=== PATIENT | male | born 1950 | race Caucasian/White ===

== ENCOUNTER 2023-05-17 02:52 | Day surgery (SDC) | payer OTHER, SELFPAY ==
[2023-05-09 12:24] VITALS: BMI 38.5
[2023-05-17 07:22] VITALS: BP 167/97; PULSE 95; RESP 20; TEMP 36.4; O2SAT 96; BMI 36.0
[2023-05-17] MEDS: LACTATED RINGERS 1,000 ML 150 ML IV CONT (07:38)
--- NOTE | 2023-05-17 07:57 | PM.HPGS ---
History of Present Illness History of Present Illness Consent: Risks, benefits, and alternatives have been discussed and questions answered. Patient agrees to proceed with procedure. Chief complaint: neoplasm screening Narrative: Yung Macias is a 73 year old male Presents for screening colonoscopy. Patient has current weight appetite bowel movements are normal. Patient denies abdominal pain. He has had no bleeding. Family history noncontributory. Most recent colonoscopy [address] Carlton was unremarkable. Patient does have prior history of colon polyps by Dr. Gary in 2012 and again in 2008. Review of Systems Review of Systems: Review of systems noncontributory. [facility] Past Medical History Medical History Afib HTN (hypertension) Sinusitis Vitamin D deficiency disease Family History Family History Sibling Patient's sister is in good health Patient's brother is in good health Acute myocardial infarction, Onset Age: 58 Patient's brother is Mother Family history of Alzheimer's disease Patient's mother is Acute myocardial infarction, Onset Age: 90 Father Patient's father is Family history of malignant neoplasm Other Family history of cardiovascular disease Social History Social History Smoking packs per day: 1 Smoking cigarettes per day: 20.0 Years smoked: 30 Smoking pack-years: 30.00 Smoking status: Former smoker Tobacco type: cigarettes Second hand tobacco smoke exposure: No Smoking end date: 08/22/87 Alcohol intake: current Drinks per week: 15 Alcohol use details: BEERS Substance use: never Substance use type: does not use Current Housing: Decline to Answer Concerned About Future Housing: Decline to Answer Difficulty Paying Gas/Electric Bills: Decline to Answer Difficulty Paying for Meds: Decline to Answer Currently Unemployed: Decline to Answer Education: Decline to Answer Difficulty w/ Childcare or Family Care: Decline to Answer Living arrangements: with family Spiritual care concerns: No Meds Home Medications and Allergies Home Medications Medication Instructions Recorded Confirmed Type apixaban 5 mg tablet (Eliquis) 5 mg PO BID 09/09/19 05/09/23 History olanzapine 10 mg tablet (Zyprexa) 10 mg PO HS 09/09/19 05/09/23 History triamcinolone acetonide 0.1 % 1 applic topical PRN PRN Rash 03/16/23 05/09/23 History topical cream sildenafil 50 mg tablet 50 mg PO DAILY PRN sexual activity 04/13/23 05/09/23 Rx #20 tabs clonazepam 0.5 mg tablet (Klonopin) 0.5 mg PO .hs #30 tabs 04/18/23 05/09/23 Rx memantine 10 mg tablet (Namenda) 10 mg PO BID #180 tabs 04/27/23 05/09/23 Rx Osteo Bi-Flex 1 cap PO DAILY 05/09/23 05/09/23 History atorvastatin 10 mg tablet 10 mg PO DAILY 05/09/23 05/09/23 History omega 5-taf-gmn-fish oil 1,200 mg 1 cap PO BID 05/09/23 05/09/23 History (144 mg-216 mg) capsule (Fish Oil) Allergies Allergy/AdvReac Type Severity Reaction Status Date / Time No Known Allergies Allergy Verified 05/17/23 07:18 Vital Signs Vital Signs - 24 hr 05/17/23 07:22 Temperature 97.6 F Pulse Rate 95 Respiratory Rate 20 Blood Pressure 167/97 H Pulse Oximetry 96 Oxygen Delivery Room Air Exam Narrative: Physical exam reveals patient to be alert. Vital signs stable. HEENT exam is unremarkable. Patient is anicteric. Lungs are clear to auscultation and percussion. Heart is without murmur or extra sounds. Abdomen bowel sounds are present soft nontender with no organomegaly. Digital external rectal exam normal.
--- NOTE | 2023-05-17 08:22 | WPDANESEPPF ---
Anes - Initial Pre Proc Eval Procedure: Operation Date: 05/17/23 08:30 Proposed Procedures p Screening Colonoscopy - Sameer Rubio MD Date/Time: 05/17/23 08:22 Surgeon: Sameer Rubio MD Pre Op Diagnosis: neoplasm screening Patient Data Age: 73 Gender: M Height: 1.88 m Weight: 127.3 kg Last Vital Signs Temp 97.6 F 05/17/23 07:22 Pulse 95 05/17/23 07:22 Resp 20 05/17/23 07:22 BP 167/97 H 05/17/23 07:22 Pulse Ox 96 05/17/23 07:22 O2 Del Method Room Air 05/17/23 07:22 Allergies Allergy/AdvReac Type Severity Reaction Status Date / Time No Known Allergies Allergy Verified 05/17/23 07:18 Home Medications Medication Instructions Recorded Confirmed Type apixaban 5 mg tablet (Eliquis) 5 mg PO BID 09/09/19 05/09/23 History olanzapine 10 mg tablet (Zyprexa) 10 mg PO HS 09/09/19 05/09/23 History triamcinolone acetonide 0.1 % 1 applic topical PRN PRN Rash 03/16/23 05/09/23 History topical cream sildenafil 50 mg tablet 50 mg PO DAILY PRN sexual activity 04/13/23 05/09/23 Rx #20 tabs clonazepam 0.5 mg tablet (Klonopin) 0.5 mg PO .hs #30 tabs 04/18/23 05/09/23 Rx memantine 10 mg tablet (Namenda) 10 mg PO BID #180 tabs 04/27/23 05/09/23 Rx Osteo Bi-Flex 1 cap PO DAILY 05/09/23 05/09/23 History atorvastatin 10 mg tablet 10 mg PO DAILY 05/09/23 05/09/23 History omega 1-mzc-gft-fish oil 1,200 mg 1 cap PO BID 05/09/23 05/09/23 History (144 mg-216 mg) capsule (Fish Oil) Patient hx anesthesia problems: none Family hx anesthesia problems: none Results Review: All pre-operative results and documents have been reviewed as part of the pre-operative evaluation. [facility] Past Medical History Medical History Afib HTN (hypertension) Sinusitis Vitamin D deficiency disease Family History Family History Sibling Patient's sister is in good health Patient's brother is in good health Acute myocardial infarction, Onset Age: 58 Patient's brother is Mother Family history of Alzheimer's disease Patient's mother is Acute myocardial infarction, Onset Age: 90 Father Patient's father is Family history of malignant neoplasm Other Family history of cardiovascular disease Social History Social History Smoking packs per day: 1 Smoking cigarettes per day: 20.0 Years smoked: 30 Smoking pack-years: 30.00 Smoking status: Former smoker Tobacco type: cigarettes Second hand tobacco smoke exposure: No Smoking end date: 08/22/87 Alcohol intake: current Drinks per week: 15 Alcohol use details: BEERS Substance use: never Substance use type: does not use Current Housing: Decline to Answer Concerned About Future Housing: Decline to Answer Difficulty Paying Gas/Electric Bills: Decline to Answer Difficulty Paying for Meds: Decline to Answer Currently Unemployed: Decline to Answer Education: Decline to Answer Difficulty w/ Childcare or Family Care: Decline to Answer Living arrangements: with family Spiritual care concerns: No Anes - Eval Final PreProcedure Day of Procedure 05/17/23 08:22 Patient weight: obese Heart: regular rate and rhythm Lungs: clear to auscultation Airway: Mallampati scale class III Neurological: alert and oriented Last oral intake: >/= 8 hours ASA classification: III Emergent: no Anesthetic plan: proceed Anesthesia type and monitoring: general GIVS and standard monitoring Results Review: All pre-operative results and documents have been reviewed as part of the pre-operative evaluation. Informed Consent: The patient's anesthetic plan and its attendant risks and benefits were discussed with the patient/family/POA. Questions were solicited and answers provided to the satisfaction of the patient/family/POA.
[2023-05-17 09:16] VITALS: BP 136/91; PULSE 99; RESP 26; O2SAT 89
[2023-05-17 09:26] VITALS: BP 141/92; PULSE 99; RESP 26; O2SAT 98
[2023-05-17 09:36] VITALS: BP 141/92; PULSE 98; RESP 22; O2SAT 98
== END 2023-05-17 09:52 | disposition home or self-care (01) ==
PROVIDERS: PCP Emergency Medicine; Visit Provider Internal Medicine Gastroenterology
PROC: 0DJD8ZZ Inspection of Lower Intestinal Tract, Via Natural or Artificial Opening Endoscopic (ICD-10-PCS; CPT 45378; principal; 2023-05-17 08:30)
DX: Z12.11 Encounter for screening for malignant neoplasm of colon (principal); K63.5 Polyp of colon; K64.8 Other hemorrhoids; I48.91 Unspecified atrial fibrillation; I10 Essential (primary) hypertension; E55.9 Vitamin D deficiency, unspecified; Z79.01 Long term (current) use of anticoagulants; Z87.891 Personal history of nicotine dependence; E66.9 Obesity, unspecified; Z68.36 Body mass index [BMI] 36.0-36.9, adult
CPT/HCPCS: 45385; 88305; J2001; J2704; J7120

== ENCOUNTER 2025-08-13 19:07 | Observation (INO) | payer OTHER, SELFPAY ==
--- NOTE | ~2025-08-13 | XR_ITS ---
XR toe 1st RT min 2V 08/13/2025 19:50 Indication: Toe infection Procedure: 2 views right first toe Comparison: No prior studies for comparison. Findings: No acute fracture or traumatic malalignment. There is mild polyarticular osteoarthritis. No evidence for erosion to suggest osteomyelitis. Moderate soft tissue swelling overlying the distal phalanx. Impression: 1: No evidence for osteomyelitis. No acute fracture. Reviewed, dictated and finalized at location O. PROJECT ENGINEER Impression: 1: No evidence for osteomyelitis. No acute fracture.
--- NOTE | ~2025-08-13 | CT_ITS ---
EXAMINATION: CT diagnostic chest w con DATE: 08/16/2025 14:07 INDICATION: tracheal deviation noted on chest x-ray TECHNIQUE: Computed tomography (CT) of the chest was performed with 100 mL Omnipaque-350 intravenous contrast. Additional 3D reconstructions utilizing coronal maximum intensity projection (MIP) were performed. Automated exposure control and iterative reconstruction technique were employed. The dose-length product was 917.83 mGy-cm. COMPARISON: 10/10/2008 FINDINGS: Minimal emphysema the apices. 2 mm calcified right middle lobe nodule consistent with old granulomatous disease. There are a few additional scattered bilateral 1-2 mm noncalcified pulmonary nodules. No pneumonia, pulmonary edema, pleural effusion or pneumothorax. Heart size is normal. Atherosclerotic coronary artery calcifications. No pericardial effusion. Thoracic aorta is normal in caliber with no dissection. No pathologically enlarged thoracic lymphadenopathy. The previously noted tracheal deviation is not appreciated on current study with no appreciable impinging masses or vasculature and appearance on prior radiographs may be related to phase of respiration. Small sliding-type hiatal hernia. Again seen are multiple hepatic cysts which have increased in size the largest now measuring 4.5 cm. A couple low-attenuation left renal cysts the largest a 2.1 cm exophytic cyst at the lower pole. Mild fatty atrophy of the pancreas with 2.2 cm cystic lesion at the body the pancreas. Mild to moderate thoracic spondylosis with chronic mild anterior wedging at T7 and T8 as well as bridging osteophytes at multiple levels consistent with diffuse idiopathic skeletal hyperostosis (DISH). IMPRESSION: 1. Tracheal deviation seen on prior chest radiograph is not appreciated in the current study with no evident impinging masses or vasculature. Appearance on prior chest radiograph may be related to suboptimal inspiratory effort. 2. Indeterminate 2.1 cm cystic lesion at the body the pancreas. Could consider further evaluation with either endoscopic ultrasound or 6 month follow-up pre and postcontrast MRI. 3. Small sliding-type hiatal hernia. 4. Minimal emphysema with a few scattered 1-2 mm noncalcified pulmonary nodules. Could consider optional follow-up low-dose noncontrast chest CT in 12 months. Reviewed, dictated and finalized at location A. APHONE TECHNICIAN IMPRESSION: 1. Tracheal deviation seen on prior chest radiograph is not appreciated in the current study with no evident impinging masses or vasculature. Appearance on pr ior chest radiograph may be related to suboptimal inspiratory effort. 2. Indeterminate 2.1 cm cystic lesion at the body the pancreas. Could consider further evaluation with either endoscopic ultrasound or 6 month follow-up pre a nd postcontrast MRI. 3. Small sliding-type hiatal hernia. 4. Minimal emphysema with a few scattered 1-2 mm noncalcified pulmonary nodules . Could consider optional follow-up low-dose noncontrast chest CT in 12 months.
--- NOTE | ~2025-08-13 | XR_ITS ---
Examination: XR chest 1V portable Clinical History: cough Comparison: None Technique: Portable AP Findings: Heart size enlarged. Rightward tracheal deviation. Lungs clear. No acute bony abnormality. IMPRESSION: 1. Recommend CT chest to ensure tracheal deviation merely due to normal structures. 2. Pericardial effusion and/or cardiomegaly. Reviewed, dictated and finalized at location R. RINTENDENT COLLIERY IMPRESSION: 1. Recommend CT chest to ensure tracheal deviation merely due to normal struct ures. 2. Pericardial effusion and/or cardiomegaly.
--- OUTSIDE RECORDS SUMMARY | 2025-08-13 19:08 | XMS_ITS | Clinical Summary ---
Author Organization [facility] Address [address] [place] [id number] Care Team Providers Care Cable Weaver Name Role Phone Unavailable Primary Care Provider Unavailabl e Social History Tobacco Use Types Packs/Day Years Used Date Smoking Tobacco: Never Assessed Sex and Gender Information Value Date Recorded Sex Assigned at Not on file Legal Sex Male 11:17 PM CDT Gender Identity Not on file Sexual Orientation Not on file Plan of Treatment Health Maintenance Due Date Last Done Comments Hepatitis C 1966 DTaP, Tdap and Td Vaccines ( 1 - Tdap) 1967 Pneumococcal Vaccine: 50+ Years (1 of 1 - PCV) 1998 Zoster Vaccines (1 of 2) 1998 Annual Medicare Wellness Visit 2013 RSV Immunization or 60+ Years (1 - 1-dose 75+ series) 2023 COVID-19 Vaccine (3 - 2024-2 6 season) 2025 11/07/2020, 10/17/2020 Influenza Adult (#1) 2025 Hepatitis A Vaccines Aged Out No long er eligible based on patient's age to complete this topic Meningococcal B Vaccine Aged Out No l onger eligible based on patient's age to complete this topic Meningococcal Vaccine Aged Out No promise jemal eligible based on patient's age to complete this topic RSV Immunizations Under 20 Months Aged Out No longer eligible b ased on patient's age to complete this topic Insurance [employer]
--- OUTSIDE RECORDS SUMMARY | 2025-08-13 19:08 | XMS_ITS | Clinical Summary ---
Author Organization [facility] [address] Address [address] [place] [address] Care Team Providers Care Court Of Appeals Judge Name Role Phone Dylan Morejon MD Primary Care Provide r Allergies No known active allergies Medications zyjhr-9-phx-epa -dpa-fish oil 1,050-1,200 mg capsule 1 capsule Active tcourzdq-kvgi-o nf6-A-olzm-bosw 750 mg-644 mg- 30 mg-1 mg tablet Take by mouth. Active clonazePAM (KlonoPIN) 0.5 mg tablet Take 0.5 tablets (0.25 mg total) by mouth nightly Active OLANZapine (ZyPREXA) 10 mg tablet Take 1 tablet (10 mg total) by mouth nightly Active atorvastatin (LIPITOR) 10 mg tablet Take 1 tablet (10 mg total) by mouth daily Active cholecalciferol (VITAMIN D-3) 2000 unit capsule Take 1 capsule (2,000 Units total) by mouth daily Active memantine (NAMENDA) 10 mg tabletIndicatio ns:Moderate to Severe Alzheimer's Type Dementia Take 1 tablet (10 mg total) by mouth 2 (two) times a day Active Eliquis 5 mg tablet TAKE 1 TABLET BY MOUTH TWICE A DAY 180 tablet 3 03/06/2025 Active Active Problems Problem Noted Date Diagnosed Date Chronic atrial fibrillation 07/06/2017 Surgical History Surgery Date Site/Laterality Comments HERNIA REPAIR COLONOSCOPY W/ BIOPSIES 11/20/2017 - 12/19/2017 Medical History Medical History Date Comments Atrial fibrillation (HCC) Family History Relation Name Status Comments Father (Age 92) Mother (Age 91) Social History Tobacco Use Types Packs/Day Years Used Date Smoking Tobacco: Former Smokeless Tobacco: Never Tobacco Cessation:Counseling Given: Not Answered Alcohol Use Standard Drinks/Week Comments Yes 0 (1 standard drink = 0.6 oz pur e alcohol) Sex and Gender Information Value Date Recorded Sex Assigned at Not on file 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 Gender Identity Not on file Sexual Orientation Not on file Last Filed Vital Signs Vital Sign Reading Time Taken Comments Blood Pressure 120/74 02/18/2025 11:43 AM CDT Pulse 99 02/18/2025 11:43 AM CDT Temperature - - Respiratory Rate - - Oxygen Saturation 92% 02/18/2025 11: 43 AM CDT Inhaled Oxygen Concentration - - Weight 137.1 kg (302 lb 3.2 oz) 025 11:43 AM CDT Height 188 cm (6' 2) 02/18/2025 11:43 AM CDT Body Mass Index 38.8 02/18/2025 11:43 AM CDT Plan of Treatment Health Maintenance Due Date Last Done Comments Depression Screening 1950 Fall Risk Assessment 1950 Hepatitis C Screening 1950 DTaP/Tdap/Td Vaccine (1 - Tdap) 1959 Hepatitis B Screening 1966 Pneumococcal vaccine 65+ (1 of 2 - PCV) 1967 Zoster Vaccine (1 of 2) 1998 Abdominal Aortic Aneurysm (AAA) Screen 2013 Well Visit 65+ 2013 Influenza Vaccine (#1) 2025 [place] [address] [facility] [place] [id number] [facility] Care Teams Court Of Appeals Judge Relationship Specialty Start Date End Date Dylan Morejon MD [id number] [place] [id number] PCP - General Emergency Medicine 06/10/17
--- OUTSIDE RECORDS SUMMARY | 2025-08-13 19:08 | XMS_ITS | Patient Health Record ---
Author Organization [facility] [address] Address [address] [facility] [address] [place] [address] Support Name Relationship Address Phone SHAHID LOUIS Guarantor Unknown [phone] Reason For Referral No Information Medications Medication SIG (Take, Route, Fr equency, Duration) Notes Start Date End Date Status ZyPREXA 5 MG Tablet Oral Active ZyPREXA 15 mg Tablet Oral Active PROzac 20 MG Capsule Oral Active ZyPREXA 10 mg Tablet Oral Active Plan Of Treatment No Information
[2025-08-13 19:26] VITALS: BP 159/91; PULSE 98; RESP 16; TEMP 36.9; O2SAT 98
--- NOTE | 2025-08-13 19:53 | ECG_ITS ---
Test Date: 2025-08-13 22:27:45 Measurements Intervals [place] Rate: 92 P: 0 MT: 0 QRS: 13 QRSD: 110 T: 1 QT: 387 QTc: 480 Interpretive Statements ATRIAL FIBRILLATION BORDERLINE ST-T WAVE ABNORMALITY- ANTERIOR LEADS ABNORMAL ECG No previous ECG available for comparison Electronically Signed On 08-14-2025 06:55:46 MANAGER HI by Jason Ivy D.O.
[2025-08-13 22:32] VITALS: BP 146/93; PULSE 92; RESP 18; TEMP 37; O2SAT 98
[2025-08-13 22:38] LABS: Hematocrit 38.9 % (42.0-52.0); Hemoglobin 12.8 g/dL (14.0-18.0); Immature Granulocyte Percent A 0.2 % (0-0.5); Lymphocytes Absolute Auto 1.40 K/mm3 (0.9-3.2); Mean Corpuscular HGB Conc 32.9 g/dl (32-36); Mean Corpuscular Hemoglobin 30.4 pg (26-34); Mean Corpuscular Volume 92.4 fl (80-100); Nucleated Red Blood Cells Absolute Auto 0.000 K/mm3 (0.0-0.012); Nucleated Red Blood Cells Perc 0.0 % (0.0-0.2); Platelet Count Result 144 k/mm3 (150-375); Red Blood Count 4.21 M/mm3 (4.6-6.20); White Blood Count 4.9 K/mm3 (4.5-10.0)
[2025-08-13 23:01] LABS: INR 1.4; Prothrombin Time 16.7 Seconds (11.1-14.7)
[2025-08-13 23:02] LABS: Partial Thromboplastin Time 35.2 Seconds (22.3-36.8)
[2025-08-13 23:11] LABS: Alanine Aminotransferase 20 U/L (6-50); Albumin Level 4.1 g/dL (3.5-5.1); Alkaline Phosphatase 122 U/L (38-126); Anion Gap 6 mmol/L (4-12); Aspartate Amino Transferase 25 U/L (17-59); Bilirubin,Total 0.5 mg/dL (0.2-1.3); Blood Urea Nitrogen 15 mg/dL (9-20); CRP < 0.5 mg/dL (<1.0); Calcium 8.8 mg/dL (8.4-10.2); Carbon Dioxide 28 mmol/L (22-30); Chloride 108 mmol/L (98-107); Estimated CRCL calculation 88 ml/min; Estimated Glomerular Filt Rate > 60; Glucose 110 mg/dL (65-110); Lipase 73 U/L (23-300); Potassium 4.1 mmol/L (3.4-5.0); Sodium 142 mmol/L (137-145); Total Protein 7.3 g/dL (6.3-8.2)
[2025-08-13 23:22] LABS: Troponin I 0.188 ng/mL (0.000-0.034)
[2025-08-14] VITALS (54 sets, daily range): BP systolic 154–178; BP diastolic 94–117; PULSE 78–108; RESP 14–26; TEMP 36.2–36.8; O2SAT 92–98; BMI 37.7; BMI 38.2
--- NOTE | 2025-08-14 | ECHO_ITS ---
Patient Info Name: Yung Macias Age: 75 years : 1950 Gender: Male Ht: 74 in Wt: 293 lbs BSA: 2.68 m2 HR: 96 bpm BP: 172 / 101 mmHg Technical Quality: Fair Exam Date: 08/14/2025 11:15 AM Patient Status: I Admit Date: 08/14/2025 Exam Type: CA echo dop color flow w con Complete two-dimensional, color flow and Doppler transthoracic echocardiogram is performed with contrast to opacify the left ventricle and to improve the deliniation of the left ventricle endocardial borders. Staff Referring Physician: Rell Kay MD Byproducts Extractor: Elton Okeefe III Attending Provider: Elba Cedeño DO Contrast/Agitated Saline Contrast/Ag. Saline: Definity Amount: 2.00 ml Administered By: Elton Okeefe III Existing IV Access: Yes IV Access Condition: patent with no signs of infiltration Summary 1. Echo contrast was used. Mild LV enlargement, severe concentric LV remodelling. LV systolic function is at lower limits of normal, LVEF 50-55%. Indeterminate diastolic function. Normal RV size and systolic function. Moderate to severe left atrial enlargement, mild right atrial enlargement. Normal mitral valve structure, mild MR. Normal aortic valve structure, no stenosis, mild aortic regurgitation. Unable to assess RVSP due to inadequate TR jet. Left Ventricle Left ventricular chamber dimension is mildly enlarged. There is severely increased left ventricular wall thickness. Right Ventricle Right ventricular chamber dimension is normal. Right ventricular systolic function is normal. Left Atria Left atrial chamber dimension is severely enlarged. Right Atria Right atrial chamber dimension is mildly enlarged. Aortic Valve The aortic valve is normal. There is no aortic valve stenosis. There is mild aortic valve regurgitation. Pulmonic Valve The pulmonic valve is not well visualized. There is mild pulmonic regurgitation. Mitral Valve The mitral valve has normal leaflets. There is mild mitral valve regurgitation. Tricuspid Valve The tricuspid valve leaflets are normal. There is mild tricuspid valve regurgitation. Pericardium/Pleural The pericardium appears normal. Inferior Vena Cava Normal inferior vena cava with >50% collapse upon inspiration consistent with normal right atrial pressure, 5 mmHg. Left Ventricular Outflow Tract Name Value Normal LVOT 2D LVOT Diameter 2.5 cm LVOT Doppler LVOT Peak Velocity 108 cm/s LVOT Peak Gradient 5 mmHg LVOT Mean Gradient 2 mmHg LVOT VTI 20 cm LVOT VTI/AV VTI Ratio 1.0 LVOT Stroke Volume 99 ml LVOT CO 10.1 l/min LVOT CI 3.8 l/min/m2 Pulmonic Valve Name Value Normal PV Doppler PV Peak Velocity 116 cm/s PV Peak Gradient 5 mmHg PV Mean Gradient 3 mmHg PV Regurgitation Doppler WA Peak End Diastolic Velocity 142 cm/s Mitral Valve Name Value Normal MV Doppler MV Peak Gradient 5 mmHg MV Mean Gradient 3 mmHg MV Area (Cont Eq VTI) 5.4 cm2 MV Regurgitation Doppler MR Peak Gradient 106 mmHg MV Diastolic Function MV E Peak Velocity 94 cm/s MV Decel Time (PW) 168 ms MV Annular TDI MV E/e' (Septal) 10.9 MV E/e' (Lateral) 6.3 MV E/e' (Average) 8.6 Tricuspid Valve Name Value Normal Estimated PAP/RSVP RA Pressure 5 mmHg <=5 TV Annular TDI TV Lateral Dena s' Velocity 11.2 cm/s >=9.5 Aortic Valve Name Value Normal AV Doppler AV Peak Velocity 121 cm/s AV Peak Gradient 5 mmHg AV Mean Gradient 3 mmHg AV VTI 21 cm AV Area (Cont Eq VTI) 4.7 cm2 >=3.0 AV Area (Cont Eq Zohaib) 4.4 cm2 AV DI (Zohaib) 0.89 AV Regurgitation 2D LVOT Area 4.9 cm2 Ventricles Name Value Normal LV Dimensions 2D/MM IVS Diastolic Thickness (2D) 1.0 cm 0.6-1.0 LVID Diastole (2D) 6.1 cm 4.2-5.8 LVIW Diastolic Thickness (2D) 0.9 cm 0.6-1.0 LVID Systole (2D) 4.7 cm 2.5-4.0 LVOT Diameter 2.5 cm LV Mass (2D Cubed) 233.41 g 88.00-224.00 LV Mass Index (2D Cubed) 87 g/m2 49-115 Relative Wall Thickness (2D) 0.29 <=0.42 LV Fractional Shortening/Ejection Fraction 2D/MM LV Fractional Shortening (2D) 22 % 25-43 LV EF (2D Teichholz) 45 % LV Diastolic Volume (4C MOD) 196 ml LV EF (4C MOD) 51 % LV Diastolic Volume (2C MOD) 109 ml LV EF (2C MOD) 47 % LV Diastolic Volume (BP MOD) 158 ml 62-150 LV Diastolic Volume Index (BP MOD) 59 ml/m2 34-74 LV Systolic Volume (BP MOD) 76 ml 21-61 LV Systolic Volume Index (BP MOD) 28 ml/m2 11-31 LV EF (BP MOD) 52 % 52-72 LV Diastolic Length (4C) 9.1 cm LV Systolic Length (4C) 7.7 cm LV Stroke Volume (4C MOD) 101 ml Atria Name Value Normal LA Dimensions LA Volume (4C A-L) 142 ml LA Volume (BP A-L) 136 ml RA Dimensions RA Systolic [place] Length (4C) 7.7 cm 2.1-2.7 RA Area (4C) 36.5 cm2 <=18.0 Report Signatures
--- NOTE | 2025-08-14 01:18 | ECG_ITS ---
Test Date: 2025-08-14 02:04:11 Measurements Intervals [place] Rate: 103 P: 0 [place]: 0 QRS: 32 QRSD: 110 T: 6 QT: 385 QTc: 505 Interpretive Statements ATRIAL FIBRILLATION WITH RAPID VENTRICULAR RESPONSE INTRAVENTRICULAR CONDUCTION DELAY BORDERLINE ST-T WAVE ABNORMALITY- INFERIOR LEADS BASELINE ARTIFACT- I, III, AVR, AVL, AVF ABNORMAL ECG Compared to ECG 08/13/2025 22:27:45 HEART RATE HAS INCREASED Electronically Signed On 08-14-2025 07:07:34 COMPOSITE BOAT BUILDER by Jason Ivy D.O.
[2025-08-14 01:59] LABS: Troponin I 0.179 ng/mL (0.000-0.034)
--- NOTE | 2025-08-14 02:42 | ED.GENADULT ---
HPI - General Adult General Chief complaint: Wound/Laceration Stated complaint: infected toe Time Seen by Provider: 08/14/25 01:31 History of Present Illness HPI narrative: patient is a 75-year-old gentleman who presents emergency department with chief complaint of right great toe infection patient reports he was seen at the urgent care and then daily a and started on Keflex the patient states that he has taken 2 doses of the Keflex at and noticed that it was red he also reports he has had upper respiratory symptoms and has been coughing the patient states that he has had discomfort in his chest whenever he coughs Related Data Home Medications ?Medication ?Instructions ?Recorded ?Confirmed ?Last Taken ?Type apixaban 5 mg tablet (Eliquis) 5 mg PO BID 09/09/19 08/13/25 05/14/23 History olanzapine 10 mg tablet (Zyprexa) 10 mg PO HS 09/09/19 08/13/25 05/16/23 History omega 5-gon-xmb-fish oil 1,200 mg 1 cap PO BID 05/09/23 08/13/25 05/16/23 History (144 mg-216 mg) capsule (Fish Oil) diphenhydramine HCl 50 mg capsule 50 mg PO .am 08/13/25 08/13/25 Unknown History polyethylene glycol 3350 17 gram 17 g PO DAILY 08/13/25 08/13/25 Unknown History oral powder packet (Miralax) Allergies Allergy/AdvReac Type Severity Reaction Status Date / Time No Known Allergies Allergy Verified 08/13/25 19:30 Review of Systems Review of Systems: A 10 system review of systems was completed on the patient and is negative except for what is stated in the HPI. Nursing and ancillary documentation was reviewed. [facility] Past Medical History Medical History BRBPR (bright red blood per rectum) Constipation Perianal rash Hemorrhoids Rectal bleeding Insect bite Atherosclerosis of coronary artery REM behavioral disorder Yeast infection of the skin Ventral hernia without obstruction or gangrene Unspecified contact dermatitis, unspecified cause Umbilical hernia without obstruction and without gangrene Skin lesion of cheek Patient had no falls in past year Obsessive-compulsive disorder Mixed obsessional thoughts and acts Cellulitis of left lower extremity Bradycardia Acute non-recurrent frontal sinusitis Vitamin D deficiency disease HTN (hypertension) Afib Sinusitis Family History Family History Sibling Patient's sister is in good health Patient's brother is in good health Acute myocardial infarction, Onset Age: 58 Patient's brother is Mother Family history of Alzheimer's disease Patient's mother is Acute myocardial infarction, Onset Age: 90 Father Patient's father is Family history of malignant neoplasm Other Family history of cardiovascular disease Social History Social History Smoking packs per day: 1 Smoking cigarettes per day: 20.0 Years smoked: 30 Smoking pack-years: 30.00 Smoking status: Former smoker Tobacco type: cigarettes Second hand tobacco smoke exposure: No Smoking end date: 08/22/87 Alcohol intake: current Drinks per week: 15 Alcohol use details: BEERS Substance use: never Substance use type: does not use Lack of Transportation: No Lack of Food: Never True Current Housing: I Have Housing Concerned About Future Housing: No Difficulty Paying Gas/Electric Bills: No Difficulty Paying for Meds: No Currently Unemployed: No Education: High School Diploma/GED Difficulty w/ Childcare or Family Care: No Living arrangements: with family Spiritual care concerns: No Exam Narrative: GENERAL: Well-appearing, well-nourished, and in no acute distress. HEAD: Normocephalic, atraumatic. EYES: PERRLA and EOMI. ENT: Nares clear, no rhinorrhea or epistaxis. Mucous membranes moist. NECK: Supple. CHEST: Clear to auscultation. No respiratory distress. HEART: Regular rate and rhythm. No murmur heard. Normal peripheral pulses. ABDOMEN: Soft, nontender, nondistended, normal active bowel sounds. EXTREMITIES: Normal range of motion. No edema. SKIN: Warm, dry, no rash. a except for right great toe over there is redness present on the medial aspect of the great toe the edge of the nail NEURO: No focal deficits. Alert and oriented x3. PSYCH: Normal mood and affect. Course Vital Signs Vital signs: Vital Signs Temperature 36.9 C 08/13/25 19:26 Pulse Rate 98 08/13/25 19:26 Respiratory Rate 16 08/13/25 19:26 Blood Pressure 159/91 H 08/13/25 19:26 Pulse Oximetry 98 08/13/25 19:26 Oxygen Delivery Room Air 08/13/25 19:26 Temperature 37.0 C 08/13/25 22:32 Pulse Rate 95 08/14/25 02:45 Respiratory Rate 14 08/14/25 02:45 Blood Pressure 163/106 H 08/14/25 02:31 Pulse Oximetry 95 08/14/25 01:16 Oxygen Delivery Room Air 08/13/25 19:26 MDM Differential Diagnosis Differential Diagnosis: differential diagnosis includes osteomyelitis, cellulitis, pneumonia, ACS, EKG showed no acute ischemic changes initial troponin was elevated at 0.188 repeat troponin did not significantly increase chest x-ray was obtained white blood cell count was not significantly elevated x-ray of the foot showed no evidence of osteomyelitis CRP was normal Lab Data 08/13/25 22:29 08/13/25 22:29 Labs: Lab Results 08/13/25 08/14/25 08/14/25 Range/Units 22:29 01:30 02:06 WBC 4.9 (4.5-10.0) K/mm3 RBC 4.21 L (4.6-6.20) M/mm3 Hgb 12.8 L (14.0-18.0) g/dL Hct 38.9 L (42.0-52.0) % MCV 92.4 (80-100) fl MCH 30.4 (26-34) pg MCHC 32.9 (32-36) g/dl RDW 12.8 (11.5-14.5) % Plt Count 144 L (150-375) k/mm3 MPV 10.4 (7.4-10.4) fl Immature Gran % (Auto) 0.2 (0-0.5) % Neut % (Auto) 58.3 (45.5-73.1) % Lymph % (Auto) 28.9 (18.3-44.2) % [place] % (Auto) 9.3 H (2.6-8.5) % Eos % (Auto) 3.1 (0-4.4) % Baso % (Auto) 0.2 (0.2-1.2) % Lymph # (Auto) 1.40 (0.9-3.2) K/mm3 [place] # (Auto) 0.5 (0.1-0.6) K/mm3 Eos # (Auto) 0.2 (0-0.3) K/mm3 Baso # (Auto) 0.0 (0.0-0.1) K/mm3 Abs Immat Gran (auto) 0.01 (0.00-0.031) K/mm3 Absolute Neuts (auto) 2.8 (1.3-6.7) K/mm3 Absolute Nucleated RBC 0.000 (0.0-0.012) K/mm3 Nucleated RBC % 0.0 (0.0-0.2) % PT 16.7 H (11.1-14.7) Seconds INR 1.4 APTT 35.2 (22.3-36.8) Seconds Sodium 142 (137-145) mmol/L Potassium 4.1 (3.4-5.0) mmol/L Chloride 108 H (98-107) mmol/L Carbon Dioxide 28 (22-30) mmol/L Anion Gap 6 (4-12) mmol/L BUN 15 (9-20) mg/dL Creatinine 0.91 (0.7-1.3) mg/dL Estim Creat Clear Calc 88 ml/min Estimated GFR > 60 (59 - ) Glucose 110 (65-110) mg/dL Lactic Acid 0.8 (0.7-2.0) mmol/L Calcium 8.8 (8.4-10.2) mg/dL Total Bilirubin 0.5 (0.2-1.3) mg/dL AST 25 (17-59) U/L ALT 20 (6-50) U/L Alkaline Phosphatase 122 (38-126) U/L Troponin I 0.188 H* 0.179 H* (0.000-0.034) ng/mL C-Reactive Protein < 0.5 (<1.0) mg/dL Total Protein 7.3 (6.3-8.2) g/dL Albumin 4.1 (3.5-5.1) g/dL Lipase 73 (23-300) U/L Urine Color Yellow (Yellow) Urine Appearance Cloudy H (Clear) Urine pH 7.0 (5.0-9.0) Ur Specific [place] 1.022 (1.001-1.035) Urine Protein Negative (Negative) mg/dL Urine Glucose (UA) Negative (Negative) mg/dL Urine Ketones Trace H (Negative) mg/dL Ur Blood (Man) Negative (Negative) Urine Nitrate Negative (Negative) Urine Bilirubin Negative (Negative) Urine Urobilinogen 1.0 (<2.0) mg/dL Leukocyte Esterase Rfl Negative (Negative) STEFANIE/UL Urine RBC 3-5 H (0-2) /hpf Urine WBC 0-5 (0-3) /hpf Ur Squamous Epith Cells None seen (Few) /hpf Urine Bacteria None seen /hpf Urine Casts 0-2 Imaging Data Radiologist's impression: ITS Impressions Toe X-Ray 08/13/25 19:55 Impression: 1: No evidence for osteomyelitis. No acute fracture. Discharge Plan Discharge Clinical Impression: Elevated troponin, Cellulitis of foot, right Patient Disposition: Still a Patient Condition: Stable Patient Language: Estonian Prescriptions: No Action sildenafil 50 mg tablet 50 mg PO DAILY PRN (Reason: sexual activity) Qty: 14 1RF Rx Instructions: administer 30 minutes to 4 hours before activity memantine 10 mg tablet See Rx Instructions .ROUTE .COMPLEX Qty: 180 2RF Dose Instruction: TAKE 1 TABLET BY MOUTH TWICE A DAY Rx Instructions: TAKE 1 TABLET BY MOUTH TWICE A DAY furosemide [Lasix] 20 mg tablet 20 mg PO .COMPLEX Qty: 7 0RF Rx Instructions: 20 mg orally every other day; olanzapine [Zyprexa] 10 mg tablet 10 mg PO HS Eliquis 5 mg tablet 5 mg PO BID clonazepam [Klonopin] 0.5 mg tablet 0.5 mg PO .hs Qty: 30 5RF Rx Instructions: Take 1 tablet by mouth at bedtime. hydrocortisone acetate [Anusol-HC] 25 mg suppository 25 mg RECTAL DAILY PRN (Reason: hemorrhoids) Qty: 12 0RF omega 3-nud-dnx-fish oil [Fish Oil] 1,200 (144-216) mg Capsule 1 cap PO BID diphenhydramine HCl 50 mg capsule 50 mg PO .am polyethylene glycol 3350 [Miralax] 17 gram powder in packet 17 g PO DAILY cholecalciferol (vitamin D3) 50 mcg (2,000 unit) capsule See Rx Instructions .ROUTE .COMPLEX Qty: 90 2RF Dose Instruction: TAKE 1 CAPSULE BY MOUTH EVERY DAY Rx Instructions: TAKE 1 CAPSULE BY MOUTH EVERY DAY atorvastatin 10 mg tablet See Rx Instructions .ROUTE .COMPLEX Qty: 90 2RF Dose Instruction: TAKE 1 TABLET BY MOUTH EVERY DAY Rx Instructions: TAKE 1 TABLET BY MOUTH EVERY DAY Follow-up/Referrals: Dylan Morejon MD [Primary Care Provider, Internal Medicine]
[2025-08-14 03:12] LABS: Add Urine Microscopic? YES; Appearance Urine Cloudy (Clear); Glucose Urine UA Negative (Negative); Leukocyte Esterase Ur Negative LEU/UL (Negative); Nitrate Urine Negative (Negative); Non Pathogenic Casts 0-2; Specific Grav Ur 1.022 (1.001-1.035)
[2025-08-14] MEDS: ceFAZolin 1 GM in SODIUM CHLORIDE 0.9% IV 50 ML 100 ML IVPB ×3 (05:23→20:47)
[2025-08-14 05:37] LABS: Troponin I 0.149 ng/mL (0.000-0.034)
[2025-08-14 05:50] LABS: Influenza A QL RT-PCR Negative (Negative); Influenza B QL RT-PCR Negative (Negative); RSV RNA, RT-PCR Negative (Negative); SARS-CoV-2 RNA PCR Negative (Negative)
--- NOTE | 2025-08-14 07:15 | PC.NURSE ---
Took report on patient at 0730
--- NOTE | 2025-08-14 07:46 | P.HP_ITS ---
H&P: HPI History of Present Illness Date/Time: 08/14/25 07:46 Chief Complaint: Wound/Laceration Narrative: Yung Macias is a 75 year old male with a past medical history of HTN, afib on Eliquis who presents to the hospital due to a toe wound. He originally went to an urgent care approximately 1 week ago for a toe wound after trimming his toenails too short which cause a break in the skin in subsequent swelling/pain. He was originally discharged on 3 different medications including Keflex and took this for approximately 4-5 days but is now presenting to the emergency room with continued complaints of right great toe discomfort. He also complains of a slight nonproductive cough around the time that he went to the urgent care, but this has subsided at this point. While in the ER, he was found to be in atrial fibrillation with elevated blood pressure. Troponins were drawn and were elevated although not up trending. At the time he denies any chest pain, shortness of breath, nausea/vomiting, abdominal pain, headache/dizziness or numbness/tingling. He has a wound to the right great toe, however no extensive redness, draining, streaking or tenderness to palpation to the joint of the great toe. Denies any fevers, chills. He also does have bilateral 2+ pitting edema to the lower extremities, however he states that this is chronic and has been going on for an undetermined amount of time. Initial VS at presentation: 36.9? C, 98 HR, 16 RR, 159/91, 98% on room air WBC 4.9, HGB 12.8, HCT 38.9, PLT 144, PT 16.7, INR 1.4, sodium 142, potassium 4.1, BUN 15, creatinine 0.91, GFR 60, glucose 110, lactic acid 0.8, LFTs WNL Troponin: 0.188 -> 0.179 UA: Not indicative of infection Toe x-ray: No evidence of osteomyelitis or acute fracture EKG: , QTC 505, rate 103. Atrial fibrillation with rapid ventricular response, intraventricular conduction delay Review of Systems Review of Systems: All systems reviewed & are unremarkable except as noted in HPI and below PMFSH Past Medical History Medical History BRBPR (bright red blood per rectum) Constipation Perianal rash Hemorrhoids Rectal bleeding Insect bite Atherosclerosis of coronary artery REM behavioral disorder Yeast infection of the skin Ventral hernia without obstruction or gangrene Unspecified contact dermatitis, unspecified cause Umbilical hernia without obstruction and without gangrene Skin lesion of cheek Patient had no falls in past year Obsessive-compulsive disorder Mixed obsessional thoughts and acts Cellulitis of left lower extremity Bradycardia Acute non-recurrent frontal sinusitis Vitamin D deficiency disease HTN (hypertension) Afib Sinusitis Family History Family History Sibling Patient's sister is in good health Patient's brother is in good health Acute myocardial infarction, Onset Age: 58 Patient's brother is Mother Family history of Alzheimer's disease Patient's mother is Acute myocardial infarction, Onset Age: 90 Father Patient's father is Family history of malignant neoplasm Other Family history of cardiovascular disease Social History Social History Smoking packs per day: 1 Smoking cigarettes per day: 20.0 Years smoked: 30 Smoking pack-years: 30.00 Smoking status: Former smoker Second hand tobacco smoke exposure: No Alcohol intake: current Alcohol use details: BEERS Substance use: never Substance use type: does not use Lack of Transportation: No Lack of Food: Never True Current Housing: I Have Housing Concerned About Future Housing: No Difficulty Paying Gas/Electric Bills: No Difficulty Paying for Meds: No Currently Unemployed: No Education: High School Diploma/GED Difficulty w/ Childcare or Family Care: No Living arrangements: with family Spiritual care concerns: No Meds Home Medications and Allergies Home Medications ?Medication ?Instructions ?Recorded ?Confirmed ?Type apixaban 5 mg tablet (Eliquis) 5 mg PO BID 09/09/19 History olanzapine 10 mg tablet (Zyprexa) 10 mg PO HS 09/09/19 08/14/25 History omega 7-zqp-ilv-fish oil 1,200 mg 1 cap PO BID 3 08/14/25 History (144 mg-216 mg) capsule (Fish Oil) cholecalciferol (vitamin D3) 50 See Rx Instructions .R oute 02/22/24 08/14/25 Rx mcg (2,000 unit) capsule .COMPLEX #90 caps sildenafil 50 mg tablet 50 mg PO DAILY PRN sexual ac tivity 12/05/24 08/14/25 Rx #14 tabs atorvastatin 10 mg tablet See Rx Instructions .Route 0 02/26/25 08/14/25 Rx .COMPLEX #90 tabs clonazepam 0.5 mg tablet (Klonopin) 0.5 mg PO .hs #30 tabs 03/04/25 08/14/25 Rx furosemide 20 mg tablet (Lasix) 20 mg PO .COMPLEX #7 t abs 06/05/25 08/14/25 Rx memantine 10 mg tablet See Rx Instructions .Route 1 08/14/25 Rx .COMPLEX #180 tabs diphenhydramine HCl 50 mg capsule 50 mg PO .am 5 08/14/25 History polyethylene glycol 3350 17 gram 17 g PO DAILY 5 08/14/25 History oral powder packet (Miralax) Allergies Allergy/AdvReac Type Severity Reaction Status Date / Time cheese AdvReac Intermediate Nausea and Verified 08/14/25 10:27 Vomiting Vital Signs Vital Signs - 24 hr 08/13/25 19:26 08/13/25 22:32 08/14/25 00:24 Temperature 98.4 F 98.6 F Pulse Rate 98 92 102 H Respiratory Rate 16 18 16 Blood Pressure 159/91 H 146/93 H Pulse Oximetry 98 98 96 Oxygen Delivery Room Air 08/14/25 00:30 08/14/25 00:31 08/14/25 00:45 Temperature Pulse Rate 100 97 92 Respiratory Rate 16 14 17 Blood Pressure 154/100 H Pulse Oximetry 95 94 94 Oxygen Delivery 08/14/25 00:46 08/14/25 01:00 08/14/25 01:01 Temperature Pulse Rate 90 92 94 Respiratory Rate 16 17 18 Blood Pressure 168/95 H 154/100 H Pulse Oximetry 96 94 93 Oxygen Delivery 08/14/25 01:15 08/14/25 01:16 08/14/25 01:30 Temperature Pulse Rate 86 98 85 Respiratory Rate 16 18 22 H Blood Pressure 175/102 H Pulse Oximetry 96 95 Oxygen Delivery 08/14/25 01:31 08/14/25 01:45 08/14/25 01:46 Temperature Pulse Rate 95 99 104 H Respiratory Rate 23 H 26 H 22 H Blood Pressure 177/112 H 167/103 H Pulse Oximetry Oxygen Delivery 08/14/25 02:00 08/14/25 02:01 08/14/25 02:24 Temperature Pulse Rate 99 101 H 97 Respiratory Rate 24 H 22 H 18 Blood Pressure 178/117 H Pulse Oximetry Oxygen Delivery 08/14/25 02:30 08/14/25 02:31 08/14/25 02:45 Temperature Pulse Rate 99 87 95 Respiratory Rate 20 18 14 Blood Pressure 163/106 H Pulse Oximetry Oxygen Delivery Exam Narrative: Gen - well appearing male in no acute respiratory distress who is nontoxic- appearing lying semi recumbent in bed HEENT - normocephalic. ?Atraumatic. ?Pupils equal round and reactive. ??Sclera clear and anicteric. ?Moist mucous membranes. ?No facial asymmetry. Neck - neck was supple. ?No dominant adenopathy, thyromegaly or masses. ?2+ carotid upstrokes without bruits. Chest - lungs are clear to auscultation bilaterally. ?No wheezes or crackles. ? CV - heart was regular rate and rhythm. ?S1-S2. ?No murmurs gallops or rubs. Abd - abdomen was soft. ?Nontender. ?Nondistended. ?Positive bowel sounds. ? Ext -2+ pitting edema to bilateral lower extremities, no clubbing, cyanosis. ?2+ DP pulses bilaterally. Neuro - patient is alert and oriented x4. ?Strength is 5/5 in both upper and lower extremities. ?Cranial nerves 2-12 are intact. ?Speech is clear. Psych - normal mood and affect. ?Patient is pleasant and cooperative. Skin - superficial skin wound with dried blood and an overlying blood scab to right great toe. The area appears hemostatic. There is?no tenderness to palpation,?no surrounding erythema, and?no drainage?noted.warm and dry. ?No rashes noted. Results Labs Labs: Short CBC 08/13/25 Range/Units 22:29 WBC 4.9 (4.5-10.0) K/mm3 Hgb 12.8 L (14.0-18.0) g/dL Hct 38.9 L (42.0-52.0) % Plt Count 144 L (150-375) k/mm3 [facility] 08/13/25 22:29 Sodium 142 Potassium 4.1 Chloride 108 H Carbon Dioxide 28 BUN 15 Creatinine 0.91 Glucose 110 Calcium 8.8 Cardiac Enzymes 08/13/25 08/14/25 08/14/25 Range/Units 22:29 01:30 05:02 Troponin I 0.188 H* 0.179 H* 0.149 H* (0.000-0.034) ng/mL Liver Function 08/13/25 Range/Units 22:29 Total Bilirubin 0.5 (0.2-1.3) mg/dL AST 25 (17-59) U/L ALT 20 (6-50) U/L Alkaline Phosphatase 122 (38-126) U/L Albumin 4.1 (3.5-5.1) g/dL Urine 08/14/25 Range/Units 02:06 Urine Color Yellow (Yellow) Urine Appearance Cloudy H (Clear) Urine pH 7.0 (5.0-9.0) Ur Specific [place] 1.022 (1.001-1.035) Urine Protein Negative (Negative) mg/dL Urine Glucose (UA) Negative (Negative) mg/dL Quality VTE Prophylaxis VTE prophylaxis: pharmacologic ordered Assessment and Plan Assessment and plan (1) Afib: Code(s): I48.91 - Unspecified atrial fibrillation Status: Acute Assessment and Plan: * Keep serum potassium >4 and keep magnesium >2 * Consult Cardiology for further management, appreciate assistance and recommendations * Lovenox initiated * Echocardiogram ordered * Continue Eliquis (2) Cellulitis of foot, right: Code(s): L03.115 - Cellulitis of right lower limb Status: Acute Assessment and Plan: * Initially presented to 1 week ago for toe wound after cutting nail too close to skin * Was discharged on Keflex - reported contine to worsen throughout week * Toe XR: no osteomyelitis or acute fracture * Low suspcion for active infection, no drainage, TTP or ascending erythema * Continue cefazolin (3) Lower extremity edema: Code(s): R60.0 - Localized edema Status: Acute Assessment and Plan: * Chronic lower extremity edema for undetermined length of time * 2+ pitting edema up to mid staley on both lower ext * Cardiology following for afib/elevated troponin * Initiating diuresis -Lasix 40 mg IV b.i.d. * Monitor I/Os (4) Elevated troponin: Code(s): R79.89 - Other specified abnormal findings of blood chemistry Status: Acute Assessment and Plan: * Elevated troponin in ED: 0.149 -> 0.179 -> 0.188 * Denies any chest pain, shortness of breath * EKG: Afib w/ rvr * Chest XR: Recommend CT chest to ensure tracheal deviation merely due to normal structures. Pericardial effusion and/or cardiomegaly * Cardiology consulted * Echocardiogram pending (5) HTN (hypertension): Code(s): I10 - Essential (primary) hypertension Status: Acute Assessment and Plan: Patient's blood pressure was reviewed on 08/14 172/101 Cardiology consulted -initiating losartan 25 mg daily
[2025-08-14] MEDS: ASPIRIN 81 MG CHEWABLE TABLET PO (08:46)
--- NOTE | 2025-08-14 09:29 | WPCEDHO ---
ED Hand Off Checklist All vitals saved: Y IV Site documented: Y All med administrations documented: Y Triage Note Triage Note Pt to ed with c/o having a right 08/13/25 19:26 great toe infection. Pt was seen at urgent care in [place] and was told it was cellulitis of the toe and gave him a disk from his imaging. Pt was prescribed keflex 500mg bid started taking them yesterday. Pt was told if the toe got worse not better to be seen at the ER. Allergies No Known Allergies Allergy (Verified 08/13/25 19:30) Family History (Last Reviewed 08/14/25 @ 02:43 by Rell Kay MD) Sibling Patient's sister is in good health Patient's brother is in good health Acute myocardial infarction Patient's brother is Mother Family history of Alzheimer's disease Patient's mother is Acute myocardial infarction Father Patient's father is Family history of malignant neoplasm Other Family history of cardiovascular disease Active Medications including assessments/comments Aspirin (Aspirin 81 Mg Chewable Tablet) 81 mg PO DAILY@0800 [facility] Last Admin: 08/14/25 08:46 Dose: 81 mg Documented By: ANT Administered/Completed Medications Discontinued Medications Cefazolin Sodium 1 gm/ Sodium (Chloride) 50 mls @ 100 mls/hr IVPB ONCE STA Stop: 08/14/25 05:12 Last Infusion: 08/14/25 05:55 Dose: Infused Documented By: Admin: 08/14/25 05:23 Dose: 100 mls/hr Documented By: JONN Notes 08/14/25 07:15 Nurse Note by Jeri Torres Took report on patient at 0710 Initialized on 08/14/25 07:15 - END OF NOTE Interventions/Assessments IV / Saline Lock, Insert Start: 08/14/25 05:18 Freq: Status: Active Protocol: Document 08/14/25 05:19 JONN (Rec: 08/14/25 05:19 JONN [id number]) IV Assessment Peripheral Access Right Antecubital IV Catheter Access Initiated IV Insertion Date 08/14/25 IV Insertion Time 05:19 Catheter Gauge 20 IV Insertion 1 Attempts Ultrasound Used for No Placement IV Site Assessment WNL IV Care and WNL Maintenance Last Vital Signs Temperature 98.6 F 08/13/25 22:32 Pulse Rate 108 H 08/14/25 09:18 Respiratory Rate 21 H 08/14/25 09:18 Pulse Oximetry 94 08/14/25 09:18 Blood Pressure 163/94 H 08/14/25 09:18 Blood Pressure Mean 117 08/14/25 09:18 Oxygen Delivery Room Air 08/13/25 19:26 Weight 136.36 kg 08/13/25 19:26 Last Result - Abnormals Only RBC 4.21 M/mm3 (4.6-6.20) L 08/13/25 22:29 Hgb 12.8 g/dL (14.0-18.0) L 08/13/25 22:29 Hct 38.9 % (42.0-52.0) L 08/13/25 22:29 Plt Count 144 k/mm3 (150-375) L 08/13/25 22:29 Power % (Auto) 9.3 % (2.6-8.5) H 08/13/25 22:29 PT 16.7 Seconds (11.1-14.7) H 08/13/25 22:29 Chloride 108 mmol/L (98-107) H 08/13/25 22:29 Troponin I 0.149 ng/mL (0.000-0.034) H* 08/14/25 05:02 Urine Appearance Cloudy (Clear) H 08/14/25 02:06 Urine Ketones Trace mg/dL (Negative) H 08/14/25 02:06 Urine RBC 3-5 /hpf (0-2) H 08/14/25 02:06 Most Recent Suicide Severity Rating Suicide Severity Rating NO RISK INDICATED 08/13/25 19:26
--- NOTE | 2025-08-14 10:36 | P.CONCA_ITS ---
Assessment and Plan Assessment and plan (1) Afib: Code(s): I48.91 - Unspecified atrial fibrillation Status: Acute Assessment and Plan: * patient with chronic atrial fibrillation * appears rate controlled on no AV lindsey blocking agents * Can add metoprolol if needed * continue with Eliquis 5 mg BID (2) Elevated troponin: Code(s): R79.89 - Other specified abnormal findings of blood chemistry Status: Acute Assessment and Plan: * troponin elevated at 0.188, 0.179, 0.149, these are flat and most likely are secondary to HTN and volume overload * patient denies any chest pain or pressure * EKG shows atrial fibrillation with no acute ST/T wave changes * will do echo to look for any LV dysfunction or WMA * continue atorvastatin 10 mg daily. No aspirin as on Eliquis (3) HTN (hypertension): Code(s): I10 - Essential (primary) hypertension Status: Acute Assessment and Plan: * blood pressure has been elevated * currently on no antihypertensive agents * will begin losartan 25 mg daily and monitor. (4) Lower extremity edema: Code(s): R60.0 - Localized edema Status: Acute Assessment and Plan: * +2-3 pitting bilateral LE edema * reports this is chronic * concern for volume overload/CHF given edema and reports of cough * CXR demonstrates cardiomegaly and CT chest is pending * will check pBNP * will begin lasix 40 mg IV BID and monitor (5) Obesity (BMI 30-39.9): Code(s): E66.9 - Obesity, unspecified Status: Acute Assessment and Plan: * weight loss encouraged (6) Cellulitis of foot, right: Code(s): L03.115 - Cellulitis of right lower limb Status: Acute Assessment and Plan: * antibiotics as per primary team History of Present Illness History of Present Illness Consult date/time: 08/14/25 10:36 Requesting physician: Kunal White PA-C Consult reason: Other (elevated troponin ) Reason For Visit: infected toe Narrative: Yung Macias is a 75 y.o. male with a known history of rate controlled atrial fibrillation on Eliquis at home for AC. He reports a couple weeks ago he was trimming his toenails and tore the nail and skin on the rt great toe. He then noted some swelling and redness so he went to urgent care. While there he also, complained of cough with clear sputum production. He states they gave him 3 medications and he started them. He states the cough seemed to get better, but he was concerned about his toe so he came to the ER. He denies any fever or chills. No nausea or vomiting. In the ER patient found to be in atrial fibrillation and had elevated blood pressure. He had troponin drawn that were elevated and we were consulted. Patient denies any chest pain or pressure. States he has some shortness of breath and chronic bilateral LE edema. Review of Systems 2 Review of Systems: All systems reviewed & are unremarkable except as noted in HPI and below PMFSH Past Medical History Medical History BRBPR (bright red blood per rectum) Constipation Perianal rash Hemorrhoids Rectal bleeding Insect bite Atherosclerosis of coronary artery REM behavioral disorder Yeast infection of the skin Ventral hernia without obstruction or gangrene Unspecified contact dermatitis, unspecified cause Umbilical hernia without obstruction and without gangrene Skin lesion of cheek Patient had no falls in past year Obsessive-compulsive disorder Mixed obsessional thoughts and acts Cellulitis of left lower extremity Bradycardia Acute non-recurrent frontal sinusitis Vitamin D deficiency disease HTN (hypertension) Afib Sinusitis Family History Family History Sibling Patient's sister is in good health Patient's brother is in good health Acute myocardial infarction, Onset Age: 58 Patient's brother is Mother Family history of Alzheimer's disease Patient's mother is Acute myocardial infarction, Onset Age: 90 Father Patient's father is Family history of malignant neoplasm Other Family history of cardiovascular disease Social History Social History Smoking packs per day: 1 Smoking cigarettes per day: 20.0 Years smoked: 30 Smoking pack-years: 30.00 Smoking status: Former smoker Second hand tobacco smoke exposure: No Alcohol intake: current Alcohol use details: BEERS Substance use: never Substance use type: does not use Lack of Transportation: No Lack of Food: Never True Current Housing: I Have Housing Concerned About Future Housing: No Difficulty Paying Gas/Electric Bills: No Difficulty Paying for Meds: No Currently Unemployed: No Education: High School Diploma/GED Difficulty w/ Childcare or Family Care: No Living arrangements: with family Spiritual care concerns: No Meds Home Medications and Allergies Home Medications ?Medication ?Instructions ?Recorded ?Confirmed ?Type apixaban 5 mg tablet (Eliquis) 5 mg PO BID 09/09/19 History olanzapine 10 mg tablet (Zyprexa) 10 mg PO HS 09/09/19 08/14/25 History omega 4-yyo-wbz-fish oil 1,200 mg 1 cap PO BID 3 08/14/25 History (144 mg-216 mg) capsule (Fish Oil) cholecalciferol (vitamin D3) 50 See Rx Instructions .R oute 02/22/24 08/14/25 Rx mcg (2,000 unit) capsule .COMPLEX #90 caps sildenafil 50 mg tablet 50 mg PO DAILY PRN sexual ac tivity 12/05/24 08/14/25 Rx #14 tabs atorvastatin 10 mg tablet See Rx Instructions .Route 0 02/26/25 08/14/25 Rx .COMPLEX #90 tabs clonazepam 0.5 mg tablet (Klonopin) 0.5 mg PO .hs #30 tabs 03/04/25 08/14/25 Rx furosemide 20 mg tablet (Lasix) 20 mg PO .COMPLEX #7 t abs 06/05/25 08/14/25 Rx memantine 10 mg tablet See Rx Instructions .Route 1 08/14/25 Rx .COMPLEX #180 tabs diphenhydramine HCl 50 mg capsule 50 mg PO .am 5 08/14/25 History polyethylene glycol 3350 17 gram 17 g PO DAILY 5 08/14/25 History oral powder packet (Miralax) Allergies Allergy/AdvReac Type Severity Reaction Status Date / Time cheese AdvReac Intermediate Nausea and Verified 08/14/25 10:27 Vomiting Vital Signs Vital Signs - 24 hr 08/13/25 19:26 08/13/25 22:32 08/14/25 00:24 Temperature 36.9 C 37.0 C Pulse Rate 98 92 102 H Respiratory Rate 16 18 16 Blood Pressure 159/91 H 146/93 H Pulse Oximetry 98 98 96 Oxygen Delivery Room Air 08/14/25 00:30 08/14/25 00:31 08/14/25 00:45 Temperature Pulse Rate 100 97 92 Respiratory Rate 16 14 17 Blood Pressure 154/100 H Pulse Oximetry 95 94 94 Oxygen Delivery 08/14/25 00:46 08/14/25 01:00 08/14/25 01:01 Temperature Pulse Rate 90 92 94 Respiratory Rate 16 17 18 Blood Pressure 168/95 H 154/100 H Pulse Oximetry 96 94 93 Oxygen Delivery 08/14/25 01:15 08/14/25 01:16 08/14/25 01:30 Temperature Pulse Rate 86 98 85 Respiratory Rate 16 18 22 H Blood Pressure 175/102 H Pulse Oximetry 96 95 Oxygen Delivery 08/14/25 01:31 08/14/25 01:45 08/14/25 01:46 Temperature Pulse Rate 95 99 104 H Respiratory Rate 23 H 26 H 22 H Blood Pressure 177/112 H 167/103 H Pulse Oximetry Oxygen Delivery 08/14/25 02:00 08/14/25 02:01 08/14/25 02:24 Temperature Pulse Rate 99 101 H 97 Respiratory Rate 24 H 22 H 18 Blood Pressure 178/117 H Pulse Oximetry Oxygen Delivery 08/14/25 02:30 08/14/25 02:31 08/14/25 02:45 Temperature Pulse Rate 99 87 95 Respiratory Rate 20 18 14 Blood Pressure 163/106 H Pulse Oximetry Oxygen Delivery 08/14/25 03:02 08/14/25 03:15 08/14/25 03:16 Temperature Pulse Rate 89 98 99 Respiratory Rate 16 16 16 Blood Pressure 167/110 H Pulse Oximetry Oxygen Delivery 08/14/25 03:33 08/14/25 03:45 08/14/25 03:46 Temperature Pulse Rate 91 91 101 H Respiratory Rate 14 15 15 Blood Pressure 163/95 H Pulse Oximetry Oxygen Delivery 08/14/25 04:00 08/14/25 04:01 08/14/25 04:15 Temperature Pulse Rate 88 93 85 Respiratory Rate 17 14 15 Blood Pressure 161/102 H Pulse Oximetry Oxygen Delivery 08/14/25 04:16 08/14/25 04:39 08/14/25 04:55 Temperature Pulse Rate 94 95 98 Respiratory Rate 16 15 20 Blood Pressure 163/107 H Pulse Oximetry Oxygen Delivery 08/14/25 05:37 08/14/25 05:45 08/14/25 05:46 Temperature Pulse Rate 98 96 98 Respiratory Rate 20 17 17 Blood Pressure 165/96 H Pulse Oximetry Oxygen Delivery 08/14/25 06:00 08/14/25 06:01 08/14/25 06:15 Temperature Pulse Rate 99 93 96 Respiratory Rate 21 H 18 19 Blood Pressure 169/107 H Pulse Oximetry Oxygen Delivery 08/14/25 06:16 08/14/25 06:30 08/14/25 06:31 Temperature Pulse Rate 101 H 92 105 H Respiratory Rate 19 23 H 24 H Blood Pressure 174/98 H 170/109 H Pulse Oximetry Oxygen Delivery 08/14/25 06:45 08/14/25 06:46 08/14/25 08:12 Temperature Pulse Rate 99 96 105 H Respiratory Rate 18 14 18 Blood Pressure 155/108 H Pulse Oximetry 95 Oxygen Delivery 08/14/25 08:15 08/14/25 08:16 08/14/25 08:32 Temperature Pulse Rate 104 H 100 96 Respiratory Rate 16 19 18 Blood Pressure 162/95 H Pulse Oximetry Oxygen Delivery 08/14/25 09:18 08/14/25 10:10 Temperature 36.8 C Pulse Rate 108 H 96 Respiratory Rate 21 H 22 H Blood Pressure 163/94 H 172/101 H Pulse Oximetry 94 97 Oxygen Delivery Exam 2 Const: General: comfortable and no acute distress Neck: Neck: supple and No no JVD Resp: Effort & Inspection: normal respiratory effort Auscultation: clear to auscultation bilaterally and no crackles Cardio: Rate: regular rate Rhythm: abnormal rhythm irregularly irregular Heart sounds: no gallops, no murmurs and no rubs Extrem: General: edema (2+ bilateral LE edema ) bilateral Psych: Affect: normal affect Results Labs and Meds 08/13/25 22:29 08/13/25 22:29 Lab results: Cardiac Enzymes 08/13/25 08/14/25 08/14/25 Range/Units 22:29 01:30 05:02 AST 25 (17-59) U/L Troponin I 0.188 H* 0.179 H* 0.149 H* (0.000-0.034) ng/mL Coagulation 08/13/25 Range/Units 22:29 PT 16.7 H (11.1-14.7) Seconds APTT 35.2 (22.3-36.8) Seconds CBC 08/13/25 Range/Units 22:29 WBC 4.9 (4.5-10.0) K/mm3 RBC 4.21 L (4.6-6.20) M/mm3 Hgb 12.8 L (14.0-18.0) g/dL Hct 38.9 L (42.0-52.0) % Plt Count 144 L (150-375) k/mm3 Lymph # (Auto) 1.40 (0.9-3.2) K/mm3 Whiteside # (Auto) 0.5 (0.1-0.6) K/mm3 Eos # (Auto) 0.2 (0-0.3) K/mm3 Baso # (Auto) 0.0 (0.0-0.1) K/mm3 Comprehensive Metabolic Panel 08/13/25 Range/Units 22:29 Sodium 142 (137-145) mmol/L Potassium 4.1 (3.4-5.0) mmol/L Chloride 108 H (98-107) mmol/L Carbon Dioxide 28 (22-30) mmol/L BUN 15 (9-20) mg/dL Creatinine 0.91 (0.7-1.3) mg/dL Glucose 110 (65-110) mg/dL Calcium 8.8 (8.4-10.2) mg/dL AST 25 (17-59) U/L ALT 20 (6-50) U/L Alkaline Phosphatase 122 (38-126) U/L Total Protein 7.3 (6.3-8.2) g/dL Albumin 4.1 (3.5-5.1) g/dL Intake and Output 08/13/25 08/14/25 08/14/25 23:59 07:59 15:59 Intake Total 50 Balance 50 Intake: IV 50 ceFAZolin 1 gm In Sodium 50 Chloride 0.9% IV 50 ml @ 100 mls/hr IVPB ONCE STA Rx#: [id number] Patient Weight 08/14/25 23:59 Weight 135.1 kg EKG Interpretation EKG: no acute changes EKG shows: atrial fibrillation
--- NOTE | 2025-08-14 11:26 | ADMGEN ---
This patient, Yung Macias, was admitted to IMU Room 231-01. Patient/family oriented to hospital policies and general routines including ID bracelet, bed and alarms, visiting hours, pain management, procedures, bathroom and other care routines, personal items, smoking policy, room service/diet, and visiting hours. Information on how to activate the Rapid Response Team has been discussed. Patient/Family are encouraged to report perceived risks to care and to ask questions if they do not understand what they are told or what they should do.
[2025-08-14 11:31] LABS: NT Pro B Type Natriuretic Pept 1100 pg/mL (19.9-100)
[2025-08-14] MEDS: PERFLUTREN LIPID MICROSPHERES 1.5 ML VIAL DILUTED TO 10 ML TOTAL VOLUME IV PUSH (11:53)
--- NOTE | 2025-08-14 11:53 | IVDEFINITY ---
Prior to administration of IV Definity the patient was educated on the risks and benefits of the imaging enhancing agent including potential adverse side effects. The patient verbalized understanding. Allergies were verified. No exclusion criteria were identified and at least one of the following inclusion criteria were met: 1) physician request, 2) patient technically difficult to image (per the [place] [employer] guidelines of two or more segments not discernable within the apical view), or 3) questionable left ventricular function. ?
[2025-08-14] MEDS: FUROSEMIDE INJ 40 MG/4 ML VIAL IV PUSH ×2 (12:32→16:33)
[2025-08-14] MEDS: ATORVASTATIN 10 MG TABLET BY MOUTH (12:32)
[2025-08-14] MEDS: MEMANTINE 10 MG TABLET BY MOUTH ×2 (12:32→20:47)
[2025-08-14] MEDS: diphenhydrAMINE HCl CAP 25 MG CAPSULE 50 MG PO (12:32)
[2025-08-14] MEDS: APIXABAN 5 MG TABLET PO ×2 (12:32→20:46)
[2025-08-14] MEDS: CHOLECALCIFEROL (VITAMIN D3) 25 MCG (1,000 UNITS) TABLET 50 MCG BY MOUTH (12:32)
[2025-08-14] MEDS: LOSARTAN POTASSIUM 25 MG TABLET PO (12:33)
[2025-08-14] MEDS: OMEGA 3 POLYUNSAT FATTY ACIDS 1 GM CAP PO ×2 (12:34→16:34)
--- NOTE | 2025-08-14 16:03 | PC.NURSE ---
This patient, Yung Macias, was transferred to [[id number] ] on 08/14/25 at 1604. Personal belongings sent with patient. Report given to [HERMINIO Zhang @ [phone] ]. Appropriate documentation sent with patient. , Chichi Fernandes, updated with pt's transfer.
--- NOTE | 2025-08-14 16:14 | PC.NURSE ---
Addendum entered by Anupama Eason RN 08/14/25 17:46: got report from MARCIANO Original Note: This patient, Yung Macias, was received from [[facility]] on 08/14/25 at 1615. Patient/family oriented to unit policies and routines
[2025-08-14] MEDS: clonazePAM (*CRX) 0.5 MG TABLET PO (20:48)
[2025-08-15] VITALS: BP 141/94; PULSE 98; RESP 18; TEMP 36.2; O2SAT 94
[2025-08-15] MEDS: ceFAZolin 1 GM in SODIUM CHLORIDE 0.9% IV 50 ML 100 ML IVPB ×3 (05:07→21:35)
[2025-08-15 08:00] VITALS: BP 121/71; PULSE 78; RESP 10; TEMP 35.8; O2SAT 96
--- NOTE | 2025-08-15 08:37 | P.PNIM_ITS ---
Assessment and Plan Assessment and Plan (1) Afib: Code(s): I48.91 - Unspecified atrial fibrillation Status: Acute Assessment and Plan: * Keep serum potassium >4 and keep magnesium >2 * Consult Cardiology for further management, appreciate assistance and recommendations * Lovenox initiated * Echocardiogram ordered * Continue Eliquis (2) Cellulitis of foot, right: Code(s): L03.115 - Cellulitis of right lower limb Status: Acute Assessment and Plan: * Initially presented to 1 week ago for toe wound after cutting nail too close to skin * Was discharged on Keflex - reported contine to worsen throughout week * Toe XR: no osteomyelitis or acute fracture * Low suspcion for active infection, no drainage, TTP or ascending erythema * Continue cefazolin follow BC- still pending (3) Lower extremity edema: Code(s): R60.0 - Localized edema Status: Acute Assessment and Plan: * Chronic lower extremity edema for undetermined length of time * 2+ pitting edema up to mid staley on both lower ext * Cardiology following for afib/elevated troponin * Initiating diuresis -Lasix 40 mg IV b.i.d. * Monitor I/Os (4) Elevated troponin: Code(s): R79.89 - Other specified abnormal findings of blood chemistry Status: Acute Assessment and Plan: * Elevated troponin in ED: 0.149 -> 0.179 -> 0.188 * Denies any chest pain, shortness of breath * EKG: Afib w/ rvr * Chest XR: Recommend CT chest to ensure tracheal deviation merely due to normal structures. Pericardial effusion and/or cardiomegaly * Cardiology consulted * Echocardiogram pending (5) HTN (hypertension): Code(s): I10 - Essential (primary) hypertension Status: Acute Assessment and Plan: Patient's blood pressure was reviewed on 08/14 172/101 Cardiology consulted -initiating losartan 25 mg daily Time Spent With Patient Time with patient: 25 - 35 minutes Subjective Date/time seen: 08/15/25 08:37 Interval history: Yung Macias is a 75 year old male with a past medical history of HTN, afib on Eliquis who presents to the hospital due to a toe wound. He originally went to an urgent care approximately 1 week ago for a toe wound after trimming his toenails too short which cause a break in the skin in subsequent swelling/pain. He was originally discharged on 3 different medications including Keflex and took this for approximately 4-5 days but is now presenting to the emergency room with continued complaints of right great toe discomfort. He also complains of a slight nonproductive cough around the time that he went to the urgent care, but this has subsided at this point. While in the ER, he was found to be in atrial fibrillation with elevated blood pressure. Troponins were drawn and were elevated although not up trending. At the time he denies any chest pain, shortness of breath, nausea/vomiting, abdominal pain, headache/dizziness or numbness/tingling. He has a wound to the right great toe, however no extensive redness, draining, streaking or tenderness to palpation to the joint of the great toe. Denies any fevers, chills. He also does have bilateral 2+ pitting edema to the lower extremities, however he states that this is chronic and has been going on for an undetermined amount of time. Pt is seen and examined.IV antibiotics, no n/v/d. Wants to go home =but blood cultures still pending. States thinks his toe is a bit better. Review of Systems Review of Systems: All systems reviewed & are unremarkable except as noted in HPI and below Exam Narrative: Gen - well appearing male in no acute respiratory distress who is nontoxic- appearing lying semi recumbent in bed HEENT - normocephalic. ?Atraumatic. ?Pupils equal round and reactive. ??Sclera clear and anicteric. ?Moist mucous membranes. ?No facial asymmetry. Neck - neck was supple. ?No dominant adenopathy, thyromegaly or masses. ?2+ carotid upstrokes without bruits. Chest - lungs are clear to auscultation bilaterally. ?No wheezes or crackles. ? CV - heart was regular rate and rhythm. ?S1-S2. ?No murmurs gallops or rubs. Abd - abdomen was soft. ?Nontender. ?Nondistended. ?Positive bowel sounds. ? Ext -2+ pitting edema to bilateral lower extremities, no clubbing, cyanosis. ?2+ DP pulses bilaterally. Neuro - patient is alert and oriented x4. ?Strength is 5/5 in both upper and lower extremities. ?Cranial nerves 2-12 are intact. ?Speech is clear. Psych - normal mood and affect. ?Patient is pleasant and cooperative. Skin - superficial skin wound with dried blood and an overlying blood scab to right great toe. The area appears hemostatic. There is?no tenderness to palpation,?no surrounding erythema, and?no drainage?noted.warm and dry. ?No rashes noted. Area is marked to monitor for improvement Const: General: comfortable Objective Data Vital Signs Vital Signs: Vital Signs - 24 hr 08/14/25 09:18 08/14/25 09:57 08/14/25 10:00 Temperature Pulse Rate 108 H 96 93 Respiratory Rate 21 H 22 H Blood Pressure 163/94 H Pulse Oximetry 94 97 Oxygen Delivery Room Air 08/14/25 10:10 08/14/25 12:10 08/14/25 16:00 Temperature 98.3 F 97.7 F Pulse Rate 96 95 Respiratory Rate 22 H 20 Blood Pressure 172/101 H 178/107 H Pulse Oximetry 97 92 97 Oxygen Delivery Room Air 08/14/25 17:00 08/14/25 20:13 08/15/25 00:00 Temperature 97.5 F L 97.2 F L 97.1 F L Pulse Rate 105 H 78 98 Respiratory Rate 18 18 18 Blood Pressure 166/100 H 160/96 H 141/94 H Pulse Oximetry 98 98 94 Oxygen Delivery Intake/Output Intake/Output: Intake & Output 08/12/25 08/13/25 08/14/25 08/15/25 23:59 23:59 23:59 23:59 Intake Total 630 Output Total 3050 650 Balance -2420 -650 Meds/Results Medications: Active Medications Generic Name Dose Route Start Last Admin Trade Name Freq PRN Reason Stop Dose Admin Acetaminophen 650 mg 08/14/25 05:47 Acetaminophen 325 Mg Tablet PO Q4H PRN Mild Pain (1-3) or Fever Apixaban 5 mg 08/14/25 10:45 08/14/25 20:46 Apixaban 5 Mg Tablet PO 5 mg Q12HR CARLOTTA Administration Aspirin 81 mg 08/14/25 08:00 08/14/25 08:46 Aspirin 81 Mg Chewable Tablet PO 81 mg DAILY@0800 CARLOTTA Administration Atorvastatin Calcium 10 mg 08/14/25 10:45 08/14/25 12:32 Atorvastatin 10 Mg Tablet BY MOUTH 10 mg QAM CARLOTTA Administration Clonazepam 0.5 mg 08/14/25 21:00 08/14/25 20:48 Clonazepam (*Crx) 0.5 Mg Tablet PO 0.5 mg HS CARLOTTA Administration Diphenhydramine HCl 50 mg 08/14/25 10:35 08/14/25 12:32 Diphenhydramine Hcl Cap 25 Mg Capsule PO 50 mg QAM CARLOTTA Administration Fish Oil 1 gm 08/14/25 10:45 08/14/25 16:34 Aroda 3 Polyunsat Fatty Acids 1 Gm Cap PO 1 gm BID CARLOTTA Administration Furosemide 40 mg 08/14/25 10:45 08/14/25 16:33 Furosemide Inj 40 Mg/4 Ml Vial IV PUSH 40 mg BID CARLOTTA Administration Cefazolin Sodium 1 gm/ Sodium 50 mls @ 100 mls/hr 08/14/25 13:00 08/15/25 05:07 Chloride IVPB 100 mls/hr Q8H CARLOTTA Administration Losartan Potassium 25 mg 08/14/25 10:35 08/14/25 12:33 Losartan Potassium 25 Mg Tablet PO 25 mg DAILY CARLOTTA Administration Memantine 10 mg 08/14/25 10:35 08/14/25 20:47 Memantine 10 Mg Tablet BY MOUTH 10 mg Q12HR CARLOTTA Administration Olanzapine 10 mg 08/14/25 21:00 08/14/25 20:47 Olanzapine 5 Mg Tablet PO 10 mg HS CARLOTTA Administration Polyethylene Glycol 17 gm 08/14/25 09:00 08/14/25 12:34 Polyethylene Glycol 3350 17 Gm Powd.Pack PO 17 gm DAILY CARLOTTA Administration Vitamin D 50 mcg 08/14/25 12:30 08/14/25 12:32 Cholecalciferol (Vitamin D3) 25 Mcg (1,000 Units) Tablet BY MOUTH 50 mcg QAM CARLOTTA Administration Radiology Results: ITS Impressions Toe X-Ray 08/13/25 19:55 Impression: 1: No evidence for osteomyelitis. No acute fracture. Chest X-Ray 08/14/25 07:06 IMPRESSION: 1. Recommend CT chest to ensure tracheal deviation merely due to normal structures. 2. Pericardial effusion and/or cardiomegaly. Labs Labs: Laboratory Results - last 24 hr 08/14/25 05:02 NT-Pro-B Natriuret Pep 1100 H Quality VTE Prophylaxis VTE prophylaxis: pharmacologic ordered
[2025-08-15] MEDS: diphenhydrAMINE HCl CAP 25 MG CAPSULE 50 MG PO (09:12)
[2025-08-15] MEDS: APIXABAN 5 MG TABLET PO ×2 (09:12→21:33)
[2025-08-15] MEDS: LOSARTAN POTASSIUM 25 MG TABLET PO (09:12)
[2025-08-15] MEDS: ASPIRIN 81 MG CHEWABLE TABLET PO (09:12)
[2025-08-15] MEDS: FUROSEMIDE INJ 40 MG/4 ML VIAL IV PUSH ×2 (09:12→17:02)
[2025-08-15] MEDS: ATORVASTATIN 10 MG TABLET BY MOUTH (09:12)
[2025-08-15] MEDS: OMEGA 3 POLYUNSAT FATTY ACIDS 1 GM CAP PO ×2 (09:12→17:01)
[2025-08-15] MEDS: CHOLECALCIFEROL (VITAMIN D3) 25 MCG (1,000 UNITS) TABLET 50 MCG BY MOUTH (09:12)
[2025-08-15] MEDS: MEMANTINE 10 MG TABLET BY MOUTH ×2 (09:12→21:33)
[2025-08-15 15:14] VITALS: BP 143/75; PULSE 90; RESP 14; TEMP 35.8; O2SAT 97
[2025-08-15 19:50] VITALS: BP 161/89; PULSE 88; RESP 20; TEMP 35.7; O2SAT 95
[2025-08-15] MEDS: clonazePAM (*CRX) 0.5 MG TABLET PO (21:33)
[2025-08-16 04:40] VITALS: BP 161/89; PULSE 95; RESP 20; TEMP 36.1; O2SAT 94
[2025-08-16] MEDS: ceFAZolin 1 GM in SODIUM CHLORIDE 0.9% IV 50 ML 100 ML IVPB ×3 (04:49→21:05)
[2025-08-16] MEDS: LOSARTAN POTASSIUM 25 MG TABLET PO (08:19)
[2025-08-16] MEDS: CHOLECALCIFEROL (VITAMIN D3) 25 MCG (1,000 UNITS) TABLET 50 MCG BY MOUTH (08:19)
[2025-08-16] MEDS: diphenhydrAMINE HCl CAP 25 MG CAPSULE 50 MG PO (08:19)
[2025-08-16] MEDS: MEMANTINE 10 MG TABLET BY MOUTH ×2 (08:19→21:04)
[2025-08-16] MEDS: FUROSEMIDE INJ 40 MG/4 ML VIAL IV PUSH ×2 (08:19→16:49)
[2025-08-16] MEDS: ASPIRIN 81 MG CHEWABLE TABLET PO (08:19)
[2025-08-16] MEDS: ATORVASTATIN 10 MG TABLET BY MOUTH (08:19)
[2025-08-16] MEDS: OMEGA 3 POLYUNSAT FATTY ACIDS 1 GM CAP PO ×2 (08:19→16:49)
[2025-08-16] MEDS: APIXABAN 5 MG TABLET PO ×2 (08:19→21:04)
--- NOTE | 2025-08-16 12:28 | P.PNIM_ITS ---
Assessment and Plan Assessment and Plan (1) Afib: Code(s): I48.91 - Unspecified atrial fibrillation Status: Acute Assessment and Plan: * Keep serum potassium >4 and keep magnesium >2 * Consult Cardiology for further management, appreciate assistance and recommendations * Echocardiogram ordered * Continue Eliquis * telemetry (2) Cellulitis of foot, right: Code(s): L03.115 - Cellulitis of right lower limb Status: Acute Assessment and Plan: * Initially presented to 1 week ago for toe wound after cutting nail too close to skin * Was discharged on Keflex - reported contine to worsen throughout week * Toe XR: no osteomyelitis or acute fracture * Low suspcion for active infection, no drainage, TTP or ascending erythema * Continue cefazolin follow BC- still pending (3) Lower extremity edema: Code(s): R60.0 - Localized edema Status: Acute Assessment and Plan: * Chronic lower extremity edema for undetermined length of time * 2+ pitting edema up to mid staley on both lower ext * Cardiology following for afib/elevated troponin * Continue diuresis -Lasix 40 mg IV b.i.d. * Monitor I/Os (4) Elevated troponin: Code(s): R79.89 - Other specified abnormal findings of blood chemistry Status: Acute Assessment and Plan: * Elevated troponin in ED: 0.149 -> 0.179 -> 0.188 * Denies any chest pain, shortness of breath * EKG: Afib w/ rvr * Chest XR: Recommend CT chest to ensure tracheal deviation merely due to normal structures. Pericardial effusion and/or cardiomegaly * Cardiology consulted * Echocardiogram reviewed (5) HTN (hypertension): Code(s): I10 - Essential (primary) hypertension Status: Acute Assessment and Plan: Patient's blood pressure was reviewed on 08/14 172/101 Cardiology consulted continue osartan 25 mg daily blood pressures still elevated, though some improvement noted. Medical Record Review I have reviewed the following patient records and this information was taken into consideration when formulating the assessment and plan.: previous labs, previous ER visits and previous hospitalizations Consultations Consultations: I have discussed the care of this pt with the consulting providers. Subjective Date/time seen: 08/16/25 12:28 Interval history: Patient seen for a follow up visit. Patient sitting on the side of the bed in no acute distress. Patient denies acute pain. Patient denies acute complaints. CT neck ordered. Cardiology following patient. Patient's blood pressure remains elevated. Patient continues on IV furosemide for diuresis. Review of Systems Review of Systems: All systems reviewed & are unremarkable except as noted in HPI and below Exam Narrative: Gen - well appearing male in no distress HEENT - normocephalic. ?Atraumatic. ?Pupils equal round and reactive. ??Sclera clear and anicteric. ?Moist mucous membranes. ?No facial asymmetry. Neck - neck was supple. Chest - lungs are clear to auscultation bilaterally. ?No wheezes or crackles. ? CV - irregularly regular rhythm Abd - abdomen was soft. ?Nontender. ?Nondistended. ?Positive bowel sounds. ? Ext -1-2+ pitting edema to bilateral lower extremities, no clubbing, cyanosis. Neuro - patient is alert and oriented x4. ?Strength is 5/5 in both upper and lower extremities. ?Cranial nerves 2-12 are intact. ?Speech is clear. Psych - normal mood and affect. ?Patient is pleasant and cooperative. Skin - superficial skin wound with dried blood and an overlying blood scab to right great toe. The area appears hemostatic. There is?no tenderness to palpation,?no surrounding erythema, and?no drainage?noted.warm and dry. ?No rashes noted. Area is marked to monitor for improvement Objective Data Vital Signs Vital Signs: Vital Signs - 24 hr 08/15/25 15:14 08/15/25 19:50 08/16/25 04:40 Temperature 96.5 F L 96.3 F L 96.9 F L Pulse Rate 90 88 95 Respiratory Rate 14 20 20 Blood Pressure 143/75 H 161/89 H 161/89 H Pulse Oximetry 97 95 94 Oxygen Delivery 08/16/25 08:30 Temperature Pulse Rate Respiratory Rate Blood Pressure Pulse Oximetry Oxygen Delivery Room Air Intake/Output Intake/Output: Intake & Output 08/13/25 08/14/25 08/15/25 08/16/25 23:59 23:59 23:59 23:59 Intake Total 630 1250 590 Output Total 4322 0471 250 Balance -4362 -7468 340 Meds/Results Medications: Active Medications Generic Name Dose Route Start Last Admin Trade Name Freq PRN Reason Stop Dose Admin Acetaminophen 650 mg 08/14/25 05:47 Acetaminophen 325 Mg Tablet PO Q4H PRN Mild Pain (1-3) or Fever Apixaban 5 mg 08/14/25 10:45 08/16/25 08:19 Apixaban 5 Mg Tablet PO 5 mg Q12HR CARLOTTA Administration Aspirin 81 mg 08/14/25 08:00 08/16/25 08:19 Aspirin 81 Mg Chewable Tablet PO 81 mg DAILY@0800 CARLOTTA Administration Atorvastatin Calcium 10 mg 08/14/25 10:45 08/16/25 08:19 Atorvastatin 10 Mg Tablet BY MOUTH 10 mg QAM CARLOTTA Administration Clonazepam 0.5 mg 08/14/25 21:00 08/15/25 21:33 Clonazepam (*Crx) 0.5 Mg Tablet PO 0.5 mg HS CARLOTTA Administration Diphenhydramine HCl 50 mg 08/14/25 10:35 08/16/25 08:19 Diphenhydramine Hcl Cap 25 Mg Capsule PO 50 mg QAM CARLOTTA Administration Fish Oil 1 gm 08/14/25 10:45 08/16/25 08:19 [place] 3 Polyunsat Fatty Acids 1 Gm Cap PO 1 gm BID CARLOTTA Administration Furosemide 40 mg 08/14/25 10:45 08/16/25 08:19 Furosemide Inj 40 Mg/4 Ml Vial IV PUSH 40 mg BID CARLOTTA Administration Cefazolin Sodium 1 gm/ Sodium 50 mls @ 100 mls/hr 08/14/25 13:00 08/16/25 04:49 Chloride IVPB 100 mls/hr Q8H CARLOTTA Administration Losartan Potassium 25 mg 08/14/25 10:35 08/16/25 08:19 Losartan Potassium 25 Mg Tablet PO 25 mg DAILY CARLOTTA Administration Memantine 10 mg 08/14/25 10:35 08/16/25 08:19 Memantine 10 Mg Tablet BY MOUTH 10 mg Q12HR CARLOTTA Administration Olanzapine 10 mg 08/14/25 21:00 08/15/25 21:33 Olanzapine 5 Mg Tablet PO 10 mg HS CARLOTTA Administration Polyethylene Glycol 17 gm 08/14/25 09:00 08/16/25 08:19 Polyethylene Glycol 3350 17 Gm Powd.Pack PO 17 gm DAILY CARLOTTA Administration Vitamin D 50 mcg 08/14/25 12:30 08/16/25 08:19 Cholecalciferol (Vitamin D3) 25 Mcg (1,000 Units) Tablet BY MOUTH 50 mcg QAM CARLOTTA Administration Radiology Results: ITS Impressions Toe X-Ray 08/13/25 19:55 Impression: 1: No evidence for osteomyelitis. No acute fracture. Chest X-Ray 08/14/25 07:06 IMPRESSION: 1. Recommend CT chest to ensure tracheal deviation merely due to normal structures. 2. Pericardial effusion and/or cardiomegaly. Labs Labs: Laboratory Results - last 24 hr 08/16/25 07:29 POC Capillary Glucose 95 Quality VTE Prophylaxis VTE prophylaxis: pharmacologic ordered
[2025-08-16 16:00] VITALS: BP 154/112; PULSE 75; RESP 14; TEMP 36.1; O2SAT 95
[2025-08-16 17:46] VITALS: BP 155/94
[2025-08-16 18:38] VITALS: BP 125/72; PULSE 104
[2025-08-16 20:06] VITALS: BP 134/87; PULSE 92; RESP 16; TEMP 36.6; O2SAT 96
[2025-08-16] MEDS: clonazePAM (*CRX) 0.5 MG TABLET PO (21:04)
[2025-08-17] MEDS: ceFAZolin 1 GM in SODIUM CHLORIDE 0.9% IV 50 ML 100 ML IVPB ×2 (04:36→13:34)
[2025-08-17 05:24] VITALS: BP 144/90; PULSE 68; RESP 16; TEMP 36.3; O2SAT 96
[2025-08-17 07:51] LABS: Hematocrit 39.8 % (42.0-52.0); Hemoglobin 13.3 g/dL (14.0-18.0); Immature Granulocyte Percent A 0.2 % (0-0.5); Lymphocytes Absolute Auto 1.46 K/mm3 (0.9-3.2); Mean Corpuscular HGB Conc 33.4 g/dl (32-36); Mean Corpuscular Hemoglobin 30.9 pg (26-34); Mean Corpuscular Volume 92.3 fl (80-100); Nucleated Red Blood Cells Absolute Auto 0.000 K/mm3 (0.0-0.012); Nucleated Red Blood Cells Perc 0.0 % (0.0-0.2); Platelet Count Result 149 k/mm3 (150-375); Red Blood Count 4.31 M/mm3 (4.6-6.20); White Blood Count 5.6 K/mm3 (4.5-10.0)
[2025-08-17 08:11] LABS: Alanine Aminotransferase 18 U/L (6-50); Albumin Level 3.7 g/dL (3.5-5.1); Alkaline Phosphatase 118 U/L (38-126); Anion Gap 4 mmol/L (4-12); Aspartate Amino Transferase 33 U/L (17-59); Bilirubin,Total 0.7 mg/dL (0.2-1.3); Blood Urea Nitrogen 15 mg/dL (9-20); Calcium 8.3 mg/dL (8.4-10.2); Carbon Dioxide 36 mmol/L (22-30); Chloride 102 mmol/L (98-107); Estimated CRCL calculation 75 ml/min; Estimated Glomerular Filt Rate > 60; Glucose 91 mg/dL (65-110); Potassium 3.5 mmol/L (3.4-5.0); Sodium 142 mmol/L (137-145); Total Protein 6.7 g/dL (6.3-8.2)
[2025-08-17] MEDS: diphenhydrAMINE HCl CAP 25 MG CAPSULE 50 MG PO (08:52)
[2025-08-17] MEDS: MEMANTINE 10 MG TABLET BY MOUTH (08:52)
[2025-08-17] MEDS: FUROSEMIDE INJ 40 MG/4 ML VIAL IV PUSH (08:52)
[2025-08-17] MEDS: ASPIRIN 81 MG CHEWABLE TABLET PO (08:52)
[2025-08-17] MEDS: APIXABAN 5 MG TABLET PO (08:52)
[2025-08-17] MEDS: OMEGA 3 POLYUNSAT FATTY ACIDS 1 GM CAP PO (08:52)
[2025-08-17] MEDS: ATORVASTATIN 10 MG TABLET BY MOUTH (08:52)
[2025-08-17] MEDS: LOSARTAN POTASSIUM 25 MG TABLET PO (08:52)
[2025-08-17] MEDS: CHOLECALCIFEROL (VITAMIN D3) 25 MCG (1,000 UNITS) TABLET 50 MCG BY MOUTH (08:52)
[2025-08-17 15:17] VITALS: BP 111/71; PULSE 85; RESP 21; TEMP 35.7; O2SAT 97
--- NOTE | 2025-08-17 15:21 | PM.DS ---
DS: Summary Time Spent with Patient Time attestation: Total time spent providing and/or coordinating discharge services: DS: Data Data Completed and Pending Labs on day of discharge: Labs from last 24 hours 08/17/25 07:36 WBC 5.6 RBC 4.31 L Hgb 13.3 L Hct 39.8 L MCV 92.3 MCH 30.9 MCHC 33.4 RDW 12.4 Plt Count 149 L MPV 10.9 H Immature Gran % (Auto) 0.2 Neut % (Auto) 54.4 Lymph % (Auto) 26.3 Rooks % (Auto) 11.2 H Eos % (Auto) 7.4 H Baso % (Auto) 0.5 Lymph # (Auto) 1.46 Rooks # (Auto) 0.6 Eos # (Auto) 0.4 H Baso # (Auto) 0.0 Abs Immat Gran (auto) 0.01 Absolute Neuts (auto) 3.0 Absolute Nucleated RBC 0.000 Nucleated RBC % 0.0 Sodium 142 Potassium 3.5 Chloride 102 Carbon Dioxide 36 H Anion Gap 4 BUN 15 Creatinine 1.03 Estim Creat Clear Calc 75 Estimated GFR > 60 Glucose 91 Calcium 8.3 L Total Bilirubin 0.7 AST 33 ALT 18 Alkaline Phosphatase 118 Total Protein 6.7 Albumin 3.7 Preliminary micro results at discharge 08/14/25 05:03 Blood Culture - Preliminary Blood 08/14/25 05:03 Blood Culture - Preliminary Blood Discharge Plan Discharge Attending physician on discharge: Champ Partida Consulting providers: Kunal White; Cole Strickland Discharging Clinician: Emili Torres Anticipated Discharge Date/Time: 08/17/25 15:16 Patient Disposition: Home Activity: as tolerated Diet: heart healthy and low sodium Discharge Instructions: Please ask your PCP to follow up on the indeterminate 2.1 cm cystic lesion on the body of the pancreas that was identified on your CT scan. It is recommended for you to have an MRI with and without contrast in 6 months to further assess this lesion. Please follow a low sodium diet, weigh yourself daily and take your diuretics as prescribed. Patient Instructions: Antibiotic Form, Apixaban (By mouth) Patient Language: Thai Stand Alone Forms: General Discharge Information Follow-up/Referrals: Dylan Barreto MD [Physician, Cardiology] Referral Note: call for an appointment to be seen within 1-2 weeks of discharge Dylan Morejon MD [Primary Care Provider, Internal Medicine] Referral Note: call for an appointment to be seen within 1-2 weeks of discharge Discharge Medications: New losartan 25 mg Tablet 25 mg PO DAILY Qty: 30 0RF furosemide [Lasix] 40 mg tablet 40 mg PO BID Qty: 60 0RF amoxicillin-pot clavulanate 875-125 mg tablet 1 tablet PO Q12H Qty: 14 0RF Rx Instructions: next dose before bed 08/17/2025 aspirin [Children's Aspirin] 81 mg Tablet,Chewable 81 mg PO DAILY@0800 Qty: 30 0RF Continued memantine 10 mg tablet See Rx Instructions .ROUTE .COMPLEX Qty: 180 2RF Dose Instruction: TAKE 1 TABLET BY MOUTH TWICE A DAY Rx Instructions: TAKE 1 TABLET BY MOUTH TWICE A DAY olanzapine [Zyprexa] 10 mg tablet 10 mg PO HS Eliquis 5 mg tablet 5 mg PO BID clonazepam [Klonopin] 0.5 mg tablet 0.5 mg PO .hs Qty: 30 5RF Rx Instructions: Take 1 tablet by mouth at bedtime. omega 0-pok-kok-fish oil [Fish Oil] 1,200 (144-216) mg Capsule 1 cap PO BID diphenhydramine HCl 50 mg capsule 50 mg PO .am polyethylene glycol 3350 [Miralax] 17 gram powder in packet 17 g PO DAILY cholecalciferol (vitamin D3) 50 mcg (2,000 unit) capsule See Rx Instructions .ROUTE .COMPLEX Qty: 90 2RF Dose Instruction: TAKE 1 CAPSULE BY MOUTH EVERY DAY Rx Instructions: TAKE 1 CAPSULE BY MOUTH EVERY DAY atorvastatin 10 mg tablet See Rx Instructions .ROUTE .COMPLEX Qty: 90 2RF Dose Instruction: TAKE 1 TABLET BY MOUTH EVERY DAY Rx Instructions: TAKE 1 TABLET BY MOUTH EVERY DAY Discontinued sildenafil 50 mg tablet 50 mg PO DAILY PRN (Reason: sexual activity) Qty: 14 1RF Rx Instructions: administer 30 minutes to 4 hours before activity furosemide [Lasix] 20 mg tablet 20 mg PO .COMPLEX Qty: 7 0RF Rx Instructions: 20 mg orally every other day; Date of admission: 08/14/25 09:32 Primary Care Provider: Dylan Morejon Admitting Provider: Elba Cedeño Attending physician on admission: Elba Cedeño Condition: Stable
--- OUTSIDE RECORDS SUMMARY | 2025-08-20 08:10 | XMS_ITS | Clinical Summary ---
Author [place] [facility] [place] [address] Address [address] [place] [address] Care Team Providers Care Brand Marketing Specialist Name Role Phone Dylan Morejon MD Primary Care Provide r Allergies No known active allergies Medications zwyxv-8-pvs-epa -dpa-fish oil 1,050-1,200 mg capsule 1 capsule Active lvfjuyhu-ctih-h gb0-L-rvja-bosw 750 mg-644 mg- 30 mg-1 mg tablet [...] on file Legal Sex Male 1:08 AM [employer] Gender Identity Not on file Sexual Orientation [...] 65+ 2013 Influenza Vaccine (#1) 2025 [place] [id number] [facility] [place] [id number] [facility] Care Teams Brand Marketing Specialist Relationship Specialty Start Date End Date Dylan Morejon MD [address] [place] [id number] PCP - General Emergency Medicine 06/10/17
--- OUTSIDE RECORDS SUMMARY | 2025-08-20 08:10 | XMS_ITS | Clinical Summary ---
Author Organization [facility] Address [address] [place] [id number] Care Team Providers Care Black Top Paver Operator Name Role Phone Unavailable Primary Care Provider [...]
--- OUTSIDE RECORDS SUMMARY | 2025-08-20 08:10 | XMS_ITS | Patient Health Record ---
Author Organization [facility] Address [address] [facility] [address] [place] [address] Support Name Relationship Address Phone SHAHID LOUIS Guarantor Unknown [phone] Reason For Referral No Information Medications Medication SIG (Take, Route, Fr equency, Duration) Notes Start Date End Date Status ZyPREXA 5 MG Tablet Oral Active ZyPREXA 15 mg Tablet Oral Active PROzac 20 MG Capsule Oral Active ZyPREXA 10 mg Tablet Oral Active Plan Of Treatment No Information
== END 2025-08-17 16:11 | disposition home or self-care (01) ==
LOC: ANHED 08-14 06:02 → ANHIMU 08-14 09:45 → ANH3MEDSUR 08-16 15:08 → ANHIMU 08-20 08:07
PROVIDERS: Nurse Practitioner Adult Health; Nurse Practitioner Family; Admitting Provider Internal Medicine; Emergency Provider Emergency Medicine; PCP Emergency Medicine; Visit Provider Internal Medicine
DX: I48.91 Unspecified atrial fibrillation (principal); L03.115 Cellulitis of right lower limb; R60.0 Localized edema; R79.89 Other specified abnormal findings of blood chemistry; I10 Essential (primary) hypertension; E55.9 Vitamin D deficiency, unspecified; I25.10 Atherosclerotic heart disease of native coronary artery without angina pectoris; Z87.891 Personal history of nicotine dependence; Z82.49 Family history of ischemic heart disease and other diseases of the circulatory system; Z79.01 Long term (current) use of anticoagulants; E66.9 Obesity, unspecified; Z68.36 Body mass index [BMI] 36.0-36.9, adult
CPT/HCPCS: 36415; 71045; 71260; 73660; 80053; 81001; 82948; 83605; 83690; 83880; 84484; 85025; 85610; 85730; 86140; 87040; 87637; 93005; 96365; 96366; 96375; 96376; 99285; A9270; C8929; G0378; J0690; J1938; Q9957; Q9967